=== PATIENT | female | born 1945 | race Hispanic/Latino ===

== ENCOUNTER → 2018-03-08 | Outpatient (CLI) | payer OTHER, MEDICARE ==
[2018-03-08 14:03] LABS: CREATININE 0.9 mg/dL (0.5-1.5)
== END ==
LOC: LAB 12:35
PROVIDERS: ATTEND Internal Medicine
DX: R22.2 Localized swelling, mass and lump, trunk (principal); Z85.3 Personal history of malignant neoplasm of breast
CPT/HCPCS: 36415; 82565; 84520

== ENCOUNTER → 2018-03-21 | Outpatient (CLI) | payer OTHER, MEDICARE ==
[~2018-03-21] MED LIST: IOPAMIDOL-370 75 ML VIAL IV ONE
[2018-03-21 10:11] LABS: CREATININE 0.9 mg/dL (0.5-1.5)
== END | disposition home or self-care (01) ==
LOC: RAH 09:35
PROVIDERS: ATTEND Internal Medicine
DX: R22.2 Localized swelling, mass and lump, trunk (principal); Z85.3 Personal history of malignant neoplasm of breast
CPT/HCPCS: 36415; 71260; 82565; 84520; Q9967

== ENCOUNTER → 2018-04-01 | Outpatient (CLI) | payer OTHER, MEDICARE | END | disposition home or self-care (01) | LOC: RAH 11:55 | PROVIDERS: ATTEND Internal Medicine | DX: E04.9 Nontoxic goiter, unspecified (principal); N93.9 Abnormal uterine and vaginal bleeding, unspecified; Z90.710 Acquired absence of both cervix and uterus | CPT/HCPCS: 76536; 76856 ==

== ENCOUNTER → 2018-04-16 | Outpatient (CLI) | payer OTHER, MEDICARE | END | disposition home or self-care (01) | LOC: RAH 08:24 | PROVIDERS: ATTEND Internal Medicine | DX: R92.8 Other abnormal and inconclusive findings on diagnostic imaging of breast (principal); R94.5 Abnormal results of liver function studies; Z85.3 Personal history of malignant neoplasm of breast | CPT/HCPCS: 77065 ==

== ENCOUNTER → 2018-04-18 | Outpatient (CLI) | payer OTHER, MEDICARE ==
[~2018-04-18] MED LIST changes: -IOPAMIDOL-370 75 ML VIAL IV ONE; +LIDOCAINE 1%-EPI 1:100,000 20 ML VIAL IJ ONE; +LIDOCAINE HCL 1% 20 ML VIAL ONE; +SODIUM BICARB 50MEQ 50ML VIAL ONE
[2018-04-18 09:43] LABS: INR 1.02 (0.85-1.15); PARTIAL THROMBOPLASTIN TIME 26.8 SEC (26.3-35.5); PROTHROMBIN TIME 10.7 SEC (9.6-11.6)
== END | disposition home or self-care (01) ==
LOC: RAH 08:59
PROVIDERS: ATTEND Internal Medicine
DX: E04.9 Nontoxic goiter, unspecified (principal)
CPT/HCPCS: 36415; 60100; 85610; 85730; 88161; 88173; 88305 ×2; J3490 ×2

== ENCOUNTER → 2018-11-04 | Outpatient (CLI) | payer OTHER, MEDICARE | END | disposition home or self-care (01) | LOC: RAH 12:20 | PROVIDERS: ATTEND Internal Medicine | DX: R07.89 Other chest pain (principal) | CPT/HCPCS: 71100 ==

== ENCOUNTER → 2019-01-20 | Outpatient (CLI) | payer OTHER, MEDICARE | END | disposition home or self-care (01) | LOC: RAH 08:04 | PROVIDERS: ATTEND Internal Medicine | DX: M48.56XA Collapsed vertebra, not elsewhere classified, lumbar region, initial encounter for fracture (principal); T14.8XXA Other injury of unspecified body region, initial encounter; Y93.89 Activity, other specified; Y92.89 Other specified places as the place of occurrence of the external cause; Y99.8 Other external cause status | CPT/HCPCS: 72146 ==

== ENCOUNTER → 2019-04-24 | Outpatient (CLI) | payer OTHER, MEDICARE | END | disposition home or self-care (01) | LOC: RAH 14:33 | PROVIDERS: ATTEND Internal Medicine | DX: R92.8 Other abnormal and inconclusive findings on diagnostic imaging of breast (principal); Z85.3 Personal history of malignant neoplasm of breast | CPT/HCPCS: 77065 ==

== ENCOUNTER → 2019-04-25 | Outpatient (CLI) | payer OTHER, MEDICARE | END | disposition home or self-care (01) | LOC: OIH 13:42 | PROVIDERS: ATTEND Neurological Surgery | DX: S32.018A Other fracture of first lumbar vertebra, initial encounter for closed fracture (principal); M85.88 Other specified disorders of bone density and structure, other site; X58.XXXA Exposure to other specified factors, initial encounter; Y93.89 Activity, other specified; Y92.89 Other specified places as the place of occurrence of the external cause; Y99.8 Other external cause status | CPT/HCPCS: 72070; 72100 ==

== ENCOUNTER → 2020-07-14 | Outpatient (CLI) | payer OTHER, MEDICARE | END | disposition home or self-care (01) | LOC: RAH 14:38 | PROVIDERS: ATTEND Internal Medicine | DX: R92.2 Inconclusive mammogram (principal); Z85.3 Personal history of malignant neoplasm of breast | CPT/HCPCS: 77065 ==

== ENCOUNTER → 2021-07-04 | Outpatient (CLI) | payer OTHER, MEDICARE | END | disposition home or self-care (01) | LOC: RAH 10:32 | PROVIDERS: ATTEND Internal Medicine | DX: E04.1 Nontoxic single thyroid nodule (principal); C73 Malignant neoplasm of thyroid gland; Z85.850 Personal history of malignant neoplasm of thyroid | CPT/HCPCS: 76536 ==

== ENCOUNTER → 2021-07-15 | Outpatient (CLI) | payer OTHER, MEDICARE | END | disposition home or self-care (01) | LOC: RAH 09:41 | PROVIDERS: ATTEND Internal Medicine | DX: C50.912 Malignant neoplasm of unspecified site of left female breast (principal); Z85.3 Personal history of malignant neoplasm of breast | CPT/HCPCS: 77065 ==

== ENCOUNTER → 2022-07-17 | Outpatient (CLI) | payer MEDICARE | END | disposition home or self-care (01) | LOC: RAH 06-26 13:21 | PROVIDERS: ATTEND Internal Medicine | DX: Z12.31 Encounter for screening mammogram for malignant neoplasm of breast (principal); R92.8 Other abnormal and inconclusive findings on diagnostic imaging of breast | CPT/HCPCS: 77065 ==

== ENCOUNTER → 2023-02-12 | Outpatient (CLI) | payer MEDICARE | END | disposition home or self-care (01) | LOC: SHCH 12:43 | PROVIDERS: ATTEND Internal Medicine | DX: I10 Essential (primary) hypertension (principal); E11.9 Type 2 diabetes mellitus without complications | CPT/HCPCS: 93306 ==

== ENCOUNTER → 2023-07-16 | Outpatient (CLI) | payer MEDICARE | END | disposition home or self-care (01) | LOC: RAH 09:52 | PROVIDERS: ATTEND Internal Medicine | DX: Z85.3 Personal history of malignant neoplasm of breast (principal) | CPT/HCPCS: 77065 ==

== ENCOUNTER 2023-10-01 07:27 | Observation (INO) | payer MEDICARE ==
[2023-09-27 12:19] LABS: BASOPHILS # (AUTO) 0.04 K/uL (0.00-0.20); BASOPHILS % (AUTO) 0.5 % (0.0-5.0); EOSINOPHILS # (AUTO) 0.13 K/uL (0.00-0.70); EOSINOPHILS % (AUTO) 1.5 % (0.0-8.0); HEMATOCRIT 38.7 % (36-48); IMMATURE GRANULOCYTE ABSOLUTE 0.07 K/uL (0-1); LYMPHOCYTES # (AUTO) 2.7 K/uL (1.0-4.8); LYMPHOCYTES % (AUTO) 31.4 % (21.0-51.0); MEAN CORPUSCULAR HEMOGLOBIN 30.2 pg (27.0-33.0); MEAN CORPUSCULAR HGB CONC 33.3 g/dL (32.0-36.0); MEAN CORPUSCULAR VOLUME 90.6 fL (79-99); MONOCYTES # (AUTO) 0.7 K/uL (0.1-1.0); NEUTROPHILS # (AUTO) 4.9 K/uL (1.8-7.7); NEUTROPHILS % (AUTO) 57.8 % (40.0-77.0); PLATELET COUNT (AUTO) 287 K/uL (130-400); RED BLOOD CELL COUNT(AUTO) 4.27 MIL/uL (4.00-5.50); RED CELL DISTRIBUTION WIDTH 13.6 % (11.0-15.5); WHITE BLOOD COUNT (AUTO) 8.5 K/uL (4.8-10.8)
[2023-09-27 12:32] LABS: INR 0.94 (0.85-1.15); PROTHROMBIN TIME 10.9 SEC (9.6-11.6)
[2023-09-27 12:33] LABS: PARTIAL THROMBOPLASTIN TIME 30.5 SEC (26.3-35.5)
[2023-09-27 12:40] LABS: B-TYPE NATRIURETIC PEPTIDE 56 pg/mL (0-100); CREATININE 1.1 mg/dL (0.5-1.5); POTASSIUM 4.7 mmol/L (3.5-5.1)
[2023-09-27 12:48] VITALS: BP 213/91; PULSE 64; RESP 16
[2023-10-01] VITALS (12 sets, daily range): BP systolic 97–184; BP diastolic 45–67; PULSE 68–81; RESP 14–20; O2SAT 97–98
[~2023-10-01] VITALS: Ht 152.4 cm; Wt 58.5 kg
[~2023-10-01 07:27] MED LIST changes: +ALCA5DRO OU; +ATOR20TA65 PO; +HYDR25TA PO; +LEVO75CA5 PO; -LIDOCAINE 1%-EPI 1:100,000 20 ML VIAL IJ ONE; -LIDOCAINE HCL 1% 20 ML VIAL ONE; +LISI40TA9 PO; +METF-444 PO; +SITA100T12 PO; -SODIUM BICARB 50MEQ 50ML VIAL ONE; +TRAV2.5D OU
[2023-10-01] MEDS ORDERED: VERAPAMIL HCL 2.5 MG/ML VIAL ONE (10:01)
[2023-10-01] MEDS ORDERED: HEPARIN 10,000 UNIT/10ML (1,000 UNIT/ML) VIAL ONE (10:01)
[2023-10-01] MEDS ORDERED: IOHEXOL 350 MG/ML 100ML INFUS..BTL IV ONE (10:01)
[2023-10-01] MEDS ORDERED: LIDOCAINE HCL-MPF 2% 5ML VIAL ONE ×2 (10:01→10:37)
[2023-10-01] MEDS ORDERED: FENTANYL CITRATE PF 50 MCG/1 ML 2ML VIAL ONE ×2 (10:01→11:47)
[2023-10-01] MEDS ORDERED: MIDAZOLAM HCL 1 MG/ML 2ML VIAL ONE (10:01)
[2023-10-01] MEDS ORDERED: HYDRALAZINE 20MG/ML VIAL ONE (10:42)
[2023-10-01] MEDS ORDERED: EPTIFIBATIDE 2 MG/ML 10 ML VIAL IVP ONE (11:31)
[2023-10-01] MEDS ORDERED: EPTIFIBATIDE 75MG/100ML BOTTLE 100 ML IV ONE (11:48)
[2023-10-01] MEDS ORDERED: ASPIRIN 325MG EC TAB PO ONE (12:09)
[2023-10-01] MEDS ORDERED: CLOPIDOGREL 300MG TAB ONE (12:09)
[2023-10-01] MEDS ORDERED: ACETAMINOPHEN WITH CODEINE 1 TAB TAB PO PRN (12:30)
[2023-10-01] MEDS ORDERED: ONDANSETRON 4MG INJ IVP SCH (12:30)
[2023-10-01] MEDS ORDERED: POTASSIUM CHLORIDE 10% ELIXIR 20 MEQ/15 ML UDCUP PO PRN (12:30)
[2023-10-01] MEDS ORDERED: ONDANSETRON 4MG INJ IVP PRN (12:30)
[2023-10-01] MEDS ORDERED: NITROGLYCERIN 50MG/D5W 250ML 1 BOT IV PRN (12:30)
[2023-10-01] MEDS ORDERED: HYDRALAZINE 20MG/ML VIAL IV PRN (12:30)
[2023-10-01] MEDS ORDERED: EPTIFIBATIDE 75MG/100ML BOTTLE 100 ML IV SCH (12:30)
[2023-10-01] MEDS: INSULIN HUMULIN R 100 UNIT/ML 3ML SQ SCH ×2 (16:21→20:18)
[2023-10-02 00:09] VITALS: BP 115/49; PULSE 62; RESP 18
[2023-10-02 03:53] LABS: MEAN CORPUSCULAR HEMOGLOBIN 30.7 pg (27.0-33.0); MEAN CORPUSCULAR HGB CONC 33.7 g/dL (32.0-36.0); MEAN CORPUSCULAR VOLUME 91.1 fL (79-99); RED BLOOD CELL COUNT(AUTO) 3.84 MIL/uL (4.00-5.50); WHITE BLOOD COUNT (AUTO) 10.5 K/uL (4.8-10.8)
[2023-10-02 04:04] LABS: CREATININE 1.3 mg/dL (0.5-1.5); POTASSIUM 4.5 mmol/L (3.5-5.1)
[2023-10-02 04:09] VITALS: BP 132/64; PULSE 75; RESP 18
[2023-10-02] MEDS: INSULIN HUMULIN R 100 UNIT/ML 3ML SQ SCH (06:00)
[2023-10-02] MEDS ORDERED: LEVOTHYROXINE 75 MCG TABLET ONE (06:14)
[2023-10-02] MEDS ORDERED: LEVOTHYROXINE 75 MCG TABLET PO SCH (06:30)
[2023-10-02] MEDS ORDERED: CLOP75TA32 PO (07:45)
[2023-10-02] MEDS ORDERED: AEC81 PO (07:45)
[2023-10-02 07:47] VITALS: BP 149/68; PULSE 64; RESP 20
[2023-10-02 08:00] VITALS: O2SAT 97
[2023-10-02] MEDS ORDERED: CLOPIDOGREL 75MG TAB PO SCH (09:00)
[2023-10-02] MEDS ORDERED: ASPIRIN 81MG CHEW TAB PO SCH (09:00)
== END 2023-10-02 08:50 | disposition home or self-care (01) ==
LOC: DAH 07:27 → DAHIP 07:28 → 2DH 14:45
PROVIDERS: ADMIT Internal Medicine; ATTEND Internal Medicine
DX: I47.20 Ventricular tachycardia, unspecified (principal); I25.10 Atherosclerotic heart disease of native coronary artery without angina pectoris; I10 Essential (primary) hypertension; E03.9 Hypothyroidism, unspecified; E11.9 Type 2 diabetes mellitus without complications; E78.5 Hyperlipidemia, unspecified; M81.0 Age-related osteoporosis without current pathological fracture; Z85.3 Personal history of malignant neoplasm of breast; Z79.899 Other long term (current) drug therapy; Z88.6 Allergy status to analgesic agent
CPT/HCPCS: 80048 ×2; 83880; 85025; 85610; 85730; 36415 ×2; 71045; 93005 ×3; 93458; 82948 ×5; 85027; C1887 ×2; C1894 ×2; C1725 ×2; C1874 ×2; C1760; C1769; Q9965 ×2; G0378 ×20; J3010 ×2; J0360; J1644 ×3; J2250; J1327 ×2; J3490 ×2; Q9967; A4215; A4223 ×3; A4222; A4221; A4663; A4216; A4606; C9600; C9601; 99156; 99157

== ENCOUNTER 2024-10-02 13:37 | Inpatient (IN) | payer MEDICARE ==
[~2024-10-02] VITALS: Ht 157.5 cm; Wt 57.8 kg
[~2024-10-02 13:37] MED LIST changes: +AEC81 PO; +CLOP75TA32 PO
--- NOTE | 2024-10-02 13:57 | ERN ---
ED Note History of Present Illness Stated Complaint: SENT BY PHYSICIANSHIRA Time Seen by MD: 13:39 Dictation: PATIENT IS A 78-YEAR-OLD FEMALE COMING IN TODAY WITH HER DAUGHTER FROM LOCAL PRIMARY CARE DOCTOR'S OFFICE WITH COMPLAINTS OF SUICIDAL IDEATION AND WANTING TO . PER THE DAUGHTER, PATIENT LOST HER FOR YEARS AGO AND HAS BEEN DEPRESSED SINCE HIGHER OF HIS JUST RECENTLY TALKED ABOUT WANTING TO . SHE ALSO HAD BEEN SEEN AT LOCAL EMERGENCY ROOMS IN THE LAST TWO WEEKS FOR BLOOD PRESSURE HOWEVER SHE HAS BENIGN CHEST PAIN BACK PAIN SOB NO NAUSEA NO VOMITING. NO PLAN PATIENT STATES SHE HAS NOT BEEN TO SEE HER PRIMARY CARE DOCTOR Allergies: Coded Allergies: acetaminophen (Unverified Adverse Reaction, Mild, SWELLING, 04/18/18) patient states, "i have eye swelling with tylenol 500mg by mouth, but i can take the tylenol 325mg by mouth and no problems." Home Meds Active Scripts Clopidogrel Bisulfate (Clopidogrel) 75 Mg Tablet, 75 MG PO DAILY, #90 TAB 1 Refill Prov:VANGIE LLOYD DO 10/02/23 Aspirin (ASPIRIN 81 MG ECTAB) 81 Mg Ectab, 81 MG PO DAILY, #90 TAB.EC 2 Refills Prov:VANGIE LLOYD DO 10/02/23 Reported Medications Alcaftadine (Lastacaft Once Daily Relief) 0.25 % Drops, 1 DROP OU AM, DROP 09/27/23 Travoprost (Travatan-Z 0.004%) 0.004 % Opsol, 1 DROP OU HS, DROP 09/27/23 Sitagliptin Phosphate (Januvia) 100 Mg Tablet, 100 MG PO AM, TAB 09/27/23 Atorvastatin Calcium (Atorvastatin Calcium) 20 Mg Tablet, 20 MG PO HS, TAB 09/27/23 Metformin HCl (Metformin HCl) 500 Mg Tablet, 500 MG PO BID, TAB 09/27/23 Lisinopril (Lisinopril) 40 Mg Tablet, 40 MG PO AM, TAB 09/27/23 Levothyroxine Sodium (Levothyroxine) 75 Mcg Capsule, 75 MCG PO AM, CAP 09/27/23 Hydrochlorothiazide (Hydrochlorothiazide) 25 Mg Tablet, 25 MG PO AM, TAB 09/27/23 Past Medical History History: Not Applicable RN Note Reviewed/Agreed w/PFSH: Yes Review of System Dictation CONSTITUTIONAL: NEGATIVE EXCEPT FOR HPI WEAKNESS HEAD/FACE: NEGATIVE EXCEPT FOR HPI EENT: NEGATIVE EXCEPT FOR HPI RESPIRATORY: NEGATIVE EXCEPT FOR HPI GASTROINTESTINAL/ABDOMINAL: NEGATIVE EXCEPT FOR HPI GENITOURINARY: NEGATIVE EXCEPT FOR HPI MUSCULOSKELETAL: NEGATIVE EXCEPT FOR HPI INTEGUMENTARY: NEGATIVE EXCEPT FOR HPI NEUROLOGICAL/PSYCH: NEGATIVE EXCEPT FOR HPI ANXIETY/INSOMNIA/SUICIDAL THOUGHTS HEMATOLOGIC/LYMPHATIC: NEGATIVE EXCEPT FOR HPI ALL SYSTEMS NEGATIVE, EXCEPT NOTED ABOVE. 13 POINT REVIEW OF SYSTEMS ASSESSED AND ALL NEGATIVE EXCEPT FOR ABOVE. Initial Vital Sign VS Vital Signs Date Time Temp Pulse Resp B/P (MAP) Pulse Ox O2 Delivery O2 Flow Rate FiO2 10/02/24 13:58 98.2 82 20 164/65 99 Room Air 10/02/24 14:42 0 21 Physical Exam Dictation VITAL SIGNS REVIEWED GENERAL APPEARANCE: ALERT, ORIENTED X 3, NO ACUTE DISTRESS, WELL DEVELOPED, NOURISHED. HEAD AND FACE: NON-TRAUMATIC. EYES: PERRL, PINK CONJUNCTIVAS, EYELID NO TRAUMA, ANTERIOR CHAMBER WITH ARCUS SENILIS. EARS: PINNAS INTACT AND NO SIGNS OF TRAUMA OR ERYTHEMA EAR CANALS CLEAR AND NO DISCHARGE TM NO ERYTHEMA NOSE: NO DISCHARGE, NO BLEEDING. OROPHARYNX: MOUTH NORMAL, TONGUE PINK, PHARYNX CLEAR,NO ERYTHEMA, TONSILS NO EXUDATES, NO ABSCESSES NOTED, MUCOUS MEMBRANE MOIST NECK: SUPPLE, NON-TENDER, NO THYROMEGALY, NO MASSES, NO JVD, NO BRUITS BREAST:DEFERRED CHEST:NO TENDERNESS, NO CREPITUS, NO PARADOXICAL MOVEMENT, NO RETRACTIONS LUNGS:CLEAR, WELL-VENTILATED, SYMMETRIC, NO RALES, NO WHEEZING, NO RHONCHI, NO STRIDOR, GOOD BREATH SOUNDS BILATERALLY HEART: REGULAR RATE, REGULAR RHYTHM, NO MURMUR, NO GALLOPS VASCULAR: NO PERIPHERAL EDEMA, ABDOMEN: SOFT, POSITIVE BOWEL SOUNDS, NONDISTENDED, NO GUARDING, NONTENDER, NO REBOUND, NO MASSES NO HEPATOMEGALY, NO SPLENOMEGALY, NO HAY'S SIGN, NO HERNIAS. RECTAL: DEFERRED GENITAL: DEFERRED NEUROLOGICAL: NORMAL SPEECH, MOTOR FUNCTION INTACT, SENSORY FUNCTION INTACT S PANISH-SPEAKING, STATES [facility] HER MUSCULOSKELETAL: NECK NONTENDER, FULL RANGE OF MOTION, BACK NONTENDER, FULL RANGE OF MOTION, EXTREMITIES: NONTENDER, FULL RANGE OF MOTION SKIN: COLOR PINK, DRY, NO TURGOR, NO RASH, NO LACERATIONS, NO ABRASIONS, NO CONTUSIONS. LYMPHATIC: DEFERRED Results (Laboratory/Radiology) Laboratory/Radiology Laboratory Tests Test 10/02/24 14:14 10/02/24 14:21 Urine Color LIGHT-YELLOW (YELLOW) Urine Appearance CLOUDY (CLEAR) H Urine pH 5.0 (5.0-8.0) Urine Specific Driscoll 1.014 (1.001-1.031) Urine Protein 10 mg/dL (NEGATIVE) H Urine Glucose (UA) 200 mg/dL (NEGATIVE) H Urine Ketones NEGATIVE mg/dL (NEGATIVE) Urine Occult Blood SMALL (NEGATIVE) H Urine Nitrate NEGATIVE (NEGATIVE) Urine Bilirubin NEGATIVE mg/dL (NEGATIVE) Urine Urobilinogen 0.2 mg/dL (0.2-1.0) Urine Leukocyte Esterase 250 Kole/uL (NEGATIVE) H Urine RBC 2-5 /HPF (0-1) H Urine WBC 6-10 /HPF (0-1) H Urine Squamous Epithelial Cells RARE /HPF (0-2) Urine Bacteria RARE /HPF (None Seen) Urine Hyaline Casts 2-5 /LPF (0-1 /LPF) H Urine Opiates Screen NEGATIVE (NEGATIVE) Urine Barbiturates Screen NEGATIVE (NEGATIVE) Urine Phencyclidine Screen NEGATIVE (NEGATIVE) Urine Amphetamines Screen NEGATIVE (NEGATIVE) Urine Benzodiazepines Screen NEGATIVE (NEGATIVE) Urine Cocaine Screen NEGATIVE (NEGATIVE) Urine Marijuana (THC) Screen NEGATIVE (NEGATIVE) White Blood Count 11.9 K/uL (4.8-10.8) H Red Blood Count 3.98 MIL/uL (4.00-5.50) L Hemoglobin 12.0 g/dL (12.0-16.0) Hematocrit 35.6 % (36-48) L Mean Corpuscular Volume 89.4 fL (79-99) Mean Corpuscular Hemoglobin 30.2 pg (27.0-33.0) Mean Corpuscular Hemoglobin Concent 33.7 g/dL (32.0-36.0) Red Cell Distribution Width 12.7 % (11.0-15.5) Platelet Count 338 K/uL (130-400) Mean Platelet Volume 10.0 fL (7.5-10.5) Immature Granulocyte % (Auto) 0.7 % (0-1) Neutrophils (%) (Auto) 82.9 % (40.0-77.0) H Lymphocytes (%) (Auto) 9.7 % (21.0-51.0) L Monocytes (%) (Auto) 6.2 % (3.0-13.0) Eosinophils (%) (Auto) 0.2 % (0.0-8.0) Basophils (%) (Auto) 0.3 % (0.0-5.0) Neutrophils # (Auto) 9.9 K/uL (1.8-7.7) H Lymphocytes # (Auto) 1.2 K/uL (1.0-4.8) Monocytes # (Auto) 0.7 K/uL (0.1-1.0) Eosinophils # (Auto) 0.02 K/uL (0.00-0.70) Basophils # (Auto) 0.04 K/uL (0.00-0.20) Absolute Immature Granulocyte (auto 0.08 K/uL (0-1) Nucleated Red Blood Cells 0.0 % (0.0-0.19) White Cell Morphology Comment See comments Sodium Level 125 mmol/L (136-145) L Potassium Level 4.2 mmol/L (3.5-5.1) Chloride Level 87 mmol/L (101-111) *L Carbon Dioxide Level 26 mmol/L (21-32) Blood Urea Nitrogen 12 mg/dL (7-18) Creatinine 1.3 mg/dL (0.5-1.0) H Glomerular Filtration Rate Calc 42 mL/min (>90) Random Glucose 259 mg/dL (70-105) H Total Calcium 8.8 mg/dL (8.5-10.1) Troponin I High Sensitivity 23 ng/L (4-50) Salicylates Level < 2.8 mg/dL (2.8-20.0) L Acetaminophen Level < 1 mcg/mL (10-30) L Serum Alcohol < 3 mg/dL (0-10) Labs Reviewed?: Yes EKG Comment: EKG SINUS RHYTHM/HEART RATE 81/LEFT VENTRICULAR HYPERTROPHY, NO ED Course ED Course Orders Procedure Category Date Status Time Drug Screen Urine LAB 10/02/24 Complete 13:50 12 Lead Ekg Tracing- EKG 10/02/24 Logged Technical 13:50 Troponin I High LAB 10/02/24 Complete Sensitivity 13:50 Cbc With Differential LAB 10/02/24 Complete 13:50 Alcohol, Blood LAB 10/02/24 Complete 13:50 Salicylate LAB 10/02/24 Complete 13:50 Acetaminophen LAB 10/02/24 Complete 13:50 Urinalysis Profile LAB 10/02/24 Complete 13:50 Basic Metabolic Panel LAB 10/02/24 Complete 13:50 Chest 1vw RAD 10/02/24 Resulted 13:50 Culture Urine ANTONIA 10/02/24 In Process 14:35 Clonidine Hcl 0.1 Mg PHA 10/02/24 In Process Tablet (Catapres 0. 21:00 Clonidine Hcl 0.1 Mg PHA 10/02/24 Complete Tablet (Catapres 0. 14:44 0.9%Nacl 1000ml (Ns PHA 10/02/24 Complete 1000ml) 16:00 Ceftriaxone 1g Vial PHA 10/02/24 Complete (Rocephine 1g Inj) 16:00 Pharmacy PHA 10/02/24 Complete Communication 17:00 Current Medications Medications (Trade) Dose Ordered Sig/Juan Route PRN Reason Start Time Stop Time Status Last Admin Dose Admin Ceftriaxone Sodium (ROCEphine 1G INJ) 1 gm ONCE ONCE IVPB 10/02/24 16:00 10/02/24 17:27 DC Clonidine HCl (CATApres 0.1 mg TAB) 0.1 mg BID PO 10/02/24 21:00 11/01/24 20:59 10/02/24 15:02 Clonidine HCl (CATApres 0.1 mg TAB) 0.1 mg STK-MED ONCE .ROUTE 10/02/24 14:44 10/02/24 14:45 DC Pharmacy Profile Note (Pharmacy Communication) 1 each Q5MIN MISC 10/02/24 17:00 10/02/24 17:27 DC 10/02/24 17:10 Sodium Chloride 1,000 ml @ 0 mls/hr ONCE ONCE IV 10/02/24 16:00 10/02/24 16:01 DC 10/02/24 16:13 Vital Signs Date Time Temp Pulse Resp B/P (MAP) Pulse Ox O2 Delivery O2 Flow Rate FiO2 10/02/24 16:15 98.4 77 16 154/63 99 Room Air* 0 21 10/02/24 15:16 98.4 77 16 145/68 99 Room Air* 0 21 10/02/24 15:02 184/77 10/02/24 15:01 184/77 10/02/24 14:42 98.4 83 16 184/77 98 Room Air* 0 21 10/02/24 13:58 98.2 82 20 164/65 99 Room Air 1555, PATIENT WILL BE ADMITTED TO THE HOSPITAL FOR HYPERTENSION/URINARY TRACT INFECTION HYPONATREMIA AND HYPOCHLOREMIA AND ACUTE KIDNEY INJURY. ADDITIONALLY, BLOOD PRESSURE 145/68 AFTER CLONIDINE. 1828 BLOOD PRESSURE 154/63, PATIENT IS MEDICALLY CLEARED FROM PSYCH AND DOES NOT MEET CRITERIA FOR ADMISSION AND NOT DEEM SUICIDAL. SHE WILL BE ADMITTED TO THE HOSPITAL FOR HYPONATREMIA HYPOCHLOREMIA HYPERTENSION UNCONTROLLED DIABETES AND ACUTE KIDNEY INJURY WITH UTI. SPOKE WITH [facility] HOSPITALIST AND SHE AGREED TO ADMIT AFTER REVIEWING LABS AND SHE IS AWARE THE [facility] HAS ALREADY SCREEN THE PATIENT. HEART Score Response (Comments) Value History: Low suspicion (0) 0 Age: > 65yrs (+2) 2 Risk Factors: 1-2 risk factors (+1) 1 Initial Troponin: Normal limit (0) 0 Total 3 Medical Decision Making MDM MDM: DIFFERENTIAL DIAGNOSIS: ACS/AMI/DEPRESSION/SUICIDAL/ELECTROLYTE IMBALANCE/DEHYDRATION/UTI/INSOMNIA RATIONALE: TESTS CONSIDERED AND ORDERED SECONDARY TO SHARED DECISION MAKING I NCLUDE: LABS, ECG AND RADIOLOGY PREVIOUS OUTSIDE RECORDS REVIEWED: OLD ER VISITS. REVIEWED RISK OF COMPLICATION AND/OR MORBIDITY OR MORTALITY OF PATIENT MANAGEMENT: NONE MEDICATIONS-PER MEDICATION RECONCILIATION NEED FOR HOSPITALIZATION: PATIENT DOES MEET CRITERIA FOR HOSPITALIZATION. PATIENT WILL NEED CORRECTION OF HER ELECTROLYTE IMBALANCE AND DEHYDRATION AND THEN SUICIDAL EVALUATION BY [facility] NEED FOR EMERGENCY MAJOR/MINOR SURGERY: NO THERE ARE NO SOCIAL CONCERNS WITH THIS PATIENT. PRESCRIPTION DRUG MANAGEMENT PRESCRIPTIONS WILL INCLUDE SYMPTOMATIC CARE PATIENT'S PRIOR EXTERNAL MEDICAL RECORDS FROM OTHER ER VISITS WERE REVIEWED BY ME INDICATED. PRIOR TESTING AND RESULTS FROM PREVIOUS VISITS WERE REVIEWED. PRIOR TESTS WERE TAKEN INTO ACCOUNT WITH MEDICAL DECISION MAKING AND RESOURCE UTILIZATION, INDEPENDENT HISTORIAN/HISTORIANS WERE USED TO OBTAIN COMPLETE MEDICAL HISTORY. I INDEPENDENTLY INTERPRETED THE TEST THAT WERE PERFORMED, RESULTS WERE REVIEWED BY ME AND CONSIDERED FINDINGS ON RADIOLOGY IF ORDERED. MEDICAL MANAGEMENT AND EXAMINATION INTERPRETATION DISCUSSIONS WERE HAD BY ME WITH OTHER QUALIFIED HEALTHCARE PROFESSIONALS INDICATED FOR THE PATIENT'S CARE. DX & DISP Disposition: Inpatient Decision to Admit Time: 15:55 Departure Impression: Primary Impression: Depression Additional Impressions: Uncontrolled hypertension, Hyponatremia, Hypochloremia, Acute kidney injury, Acute urinary tract infection Condition: Stable Referrals: MIGEL CASTILLO MD (PCP) Time of Disposition: 15:55 I have reviewed the case, and I agree with, Diagnosis and Plan JESSICA RADER NP Oct 02, 2024 13:57
[2024-10-02 14:34] LABS: APPEARANCE,URINE CLOUDY (CLEAR); BILIRUBIN,URINE NEGATIVE (NEGATIVE); COLOR,URINE LIGHT-YELLOW (YELLOW); GLUCOSE, URINE (UA) 200 mg/dL (NEGATIVE); KETONES,URINE NEGATIVE (NEGATIVE); LEUKOCYTE ESTERASE ,URINE 250 Leu/uL (NEGATIVE); NITRATE,URINE NEGATIVE (NEGATIVE); OCCULT BLOOD,URINE SMALL (NEGATIVE); PROTEIN,URINE 10 mg/dL (NEGATIVE); UROBILINOGEN,URINE 0.2 mg/dL (0.2-1.0)
[2024-10-02 14:35] LABS: ADD UA MICROSCOPIC YES
[2024-10-02 14:42] LABS: BACTERIA,URINE RARE /HPF (None Seen); MUCUS,URINE RARE LPF (None Seen); SQUAMOUS EPITHELIAL CELL,UR RARE /HPF (0-2)
[2024-10-02 14:47] LABS: ALCOHOL, BLOOD < 3 mg/dL (0-10); CARBON DIOXIDE 26 mmol/L (21-32); CREATININE 1.3 mg/dL (0.5-1.0); GLOMERULAR FILTR. RATE CALC 42 mL/min (>90); GLUCOSE,RANDOM 259 mg/dL (70-105); POTASSIUM 4.2 mmol/L (3.5-5.1); SODIUM SERUM 125 mmol/L (136-145); UREA NITROGEN, BLOOD 12 mg/dL (7-18)
[2024-10-02 14:48] LABS: ACETAMINOPHEN < 1 mcg/mL (10-30); SALICYLATE < 2.8 mg/dL (2.8-20.0)
[2024-10-02 14:49] LABS: CHLORIDE 87 mmol/L (101-111)
[2024-10-02 14:57] LABS: BASOPHILS # (AUTO) 0.04 K/uL (0.00-0.20); BASOPHILS % (AUTO) 0.3 % (0.0-5.0); EOSINOPHILS # (AUTO) 0.02 K/uL (0.00-0.70); EOSINOPHILS % (AUTO) 0.2 % (0.0-8.0); HEMATOCRIT 35.6 % (36-48); IMMATURE GRANULOCYTE ABSOLUTE 0.08 K/uL (0-1); LYMPHOCYTES # (AUTO) 1.2 K/uL (1.0-4.8); LYMPHOCYTES % (AUTO) 9.7 % (21.0-51.0); MEAN CORPUSCULAR HEMOGLOBIN 30.2 pg (27.0-33.0); MEAN CORPUSCULAR HGB CONC 33.7 g/dL (32.0-36.0); MEAN CORPUSCULAR VOLUME 89.4 fL (79-99); MONOCYTES # (AUTO) 0.7 K/uL (0.1-1.0); MONOCYTES % (AUTO) 6.2 % (3.0-13.0); NEUTROPHILS # (AUTO) 9.9 K/uL (1.8-7.7); NEUTROPHILS % (AUTO) 82.9 % (40.0-77.0); PLATELET COUNT (AUTO) 338 K/uL (130-400); RED BLOOD CELL COUNT(AUTO) 3.98 MIL/uL (4.00-5.50); RED CELL DISTRIBUTION WIDTH 12.7 % (11.0-15.5); WHITE BLOOD COUNT (AUTO) 11.9 K/uL (4.8-10.8)
[2024-10-02] MEDS: cloNIDine HCL 0.1 MG TABLET ONE (15:01)
[2024-10-02] MEDS: cloNIDine HCL 0.1 MG TABLET PO SCH (15:02)
[2024-10-02 15:22] LABS: AMPHET/METH SCREEN,URINE NEGATIVE (NEGATIVE); BARBITURATE SCREEN, URINE NEGATIVE (NEGATIVE); BENZODIAZEPINES SCREEN,URINE NEGATIVE (NEGATIVE); CANNABINOID SCREEN,URINE NEGATIVE (NEGATIVE); COCAINE SCREEN,URINE NEGATIVE (NEGATIVE); OPIATE SCREEN,URINE NEGATIVE (NEGATIVE); PHENCYCLIDINE SCREEN,URINE NEGATIVE (NEGATIVE)
--- NOTE | 2024-10-02 15:25 | NUR ---
[facility] [place] NOTIFIED FOR EVALUATION
--- NOTE | 2024-10-02 15:45 | HMCIMG ---
CHEST 1VW REASON: CHEST PAIN COMPARISON: 09/27/2023 FINDINGS: Single view of the chest was obtained. Lungs are clear. Heart size is normal. There is no pulmonary vascular congestion. Mediastinum and bony thorax appear unremarkable. IMPRESSION: 1. Normal single view chest x-ray.
[2024-10-02] MEDS: 0.9%NACL 1000ML 1,000 ML IV ONE (16:13)
[2024-10-02] MEDS: PHARMACY COMMUNICATION MISC SCH (17:01)
--- NOTE | 2024-10-02 17:10 | NUR ---
TROPICAL AT BEDSIDE
[2024-10-02] MEDS: cefTRIAXone 1G VIAL IVPB ONE (18:43)
--- NOTE | 2024-10-02 19:17 | HP ---
[facility] HISTORY AND PHYSICAL Date of Service: Oct 02, 2024 Time of Service: 19:17 PCP:Shamika King HISTORY OF PRESENT ILLNESS: This is a 78-year-old female,Ukrainian speaking past medical history of anemia, spinal fracture, breast cancer, osteoporosis, diabetes, hyperlipidemia, hypertension, hypothyroidism and coronary artery disease with cardiac stent x2 who presents to the ED accompanied with her daughter after coming from a [facility] today was referred to this ED because patient expressed suicidal thoughts and expressed desire to while at the clinic.Reportedly while in the ER patient was cleared by psych and that patient does not meet criteria for admission and not suicidal. Daughter was at bedside during my evaluation who states that her mom lost her for years ago and has been depressed and has been expressing about the desire to .Patient has been recently admitted to [facility] due to hyponatremia and patient left AMA as per daughter .Patient had been to [facility] ER and was told everything was fine and was sent home as per daughter.Today she has a follow up appointment with and she ended up in here . Seen and examined patient in the ER awake,alert and coherent,following commands.Patient states she is drinking 4 bottled water a day.Patient does walking exercise daily but lately unable to do due to generalized body weakness.Patient denies hurting self or hurting other people.Patient has appropriate affect.Patient denies faver,cough,nausea,vomiting,abdominal pain,chest pain,palpitation and shortness of breath. Latest vital signs temperature 98.4 heart rate 62 blood pressure 109/54 saturation 97% on room air. Labs WBC 11.9 with negative left shift of neutrophils 82.9 hemoglobin 12, hematocrit 35 platelet count 338. Sodium 125 chloride 87 creatinine 1.3 GFR 42, glucose 259 troponin 23. Urine toxicology is unremarkable. Urinalysis is consistent with urinary tract infection. EKG result revealed sinus rhythm heart rate 81 left ventricular hypertrophy Chest x-ray result is normal. While in the ER patient was given Tylenol 650 mg p.o., Rocephin 1 g IV, 1 L NS bolus, clonidine 0.1 mg p.o. we will admit patient for further medical management. REVIEW OF SYSTEMS CONSTITUTIONAL: Complain of generalized body weakness Denies fevers, chills, or night sweats. No unintentional weight loss reported. NEUROLOGICAL: Denies headache, amaurosis fugax, motor weakness, sensory deficit, vertigo/spinning sensation, gait abnormalities, or tremors. ENT: No hearing loss, otalgia, otorrhea, rhinitis, rhinorrhea, hoarseness, or sore throat. CARDIOVASCULAR: Denies any exertional angina, dyspnea on exertion, orthopnea, paroxysmal nocturnal dyspnea, palpitations, life-threatening arrhythmias, claudication. PULMONARY: Denies any shortness of breath, cough, phlegm/sputum, hemoptysis, pleuritic chest pain. SLEEP: Denies morning headaches, daytime somnolence or napping. Denies difficulty falling asleep, staying asleep, waking from sleep. Denies knowledge of snoring. GASTROINTESTINAL: Denies any type of dysphagia to either liquids or solids. Denies nausea, vomiting, pyrosis, early satiety, abdominal pain, diarrhea, constipation, or changes in stool consistency or caliber. Denies coffee-ground emesis, hematemesis, hematochezia, or melanotic stools. GENITOURINARY: Denies frequency, urgency, nocturia, hematuria or incontinence (Storage/Irritative symptoms.) Low urinary stream, straining to void, urinary intermittency or hesitancy, splitting of the voiding stream, terminal dribbling. ENDOCRINOLOGIC: Denies polyuria, polydipsia, polyphagia or heat/cold intolerances. HEMATOLOGIC: Denies thrombophilia/previous clots, or coagulopathy/bleeding disorders. ONCOLOGIC: Denies personal history of malignancy. DERMATOLOGIC: Denies rashes or pruritus. PSYCHIATRIC: Denies any suicidal or homicidal ideation. Denies hallucinations. PAST MEDICAL HISTORY: Insomnia, spinal fracture, Breast cancer, osteoporosis, diabetes, hyperlipidemia, hypertension, hypothyroidism and primary artery disease with cardiac stent x2 PAST SURGICAL HISTORY: Right breast mastectomy, hysterectomy, thyroidectomy PAST SOCIAL HISTORY: Patient lives with son. Patient denies alcohol tobacco and recreational drug use FAMILY HISTORY: Diabetes and cancer Coded Allergies: acetaminophen (Unverified Adverse Reaction, Mild, SWELLING, 04/18/18) patient states, "i have eye swelling with tylenol 500mg by mouth, but i can take the tylenol 325mg by mouth and no problems." PHYSICAL EXAM GENERAL APPEARANCE: The patient is awake, alert, and oriented, in no acute cardiopulmonary distress. NEUROLOGICAL: Cranial nerves II-XII grossly intact. Motor is 5/5 in bilateral upper and lower extremities proximal to distal. No sensory deficits. HEENT: Face is symmetric. Pupils are equal and reactive. Extraocular movements are intact. NECK: Supple. No JVD. No thyromegaly. No submental, submandibular, pre- /postauricular, occipital or supraclavicular lymphadenopathy. CHEST: Normal chest expansion. No Telemetry. LUNGS: Absence of any rales, rhonchi or any wheezing. CARDIOVASCULAR: Regular. S1 and S2 normal. No appreciable rubs, murmurs or gallops. ABDOMEN: Soft, nontender, and nondistended. There is no rebound, voluntary guarding, or rigidity. : Deferred. No Vann. EXTREMITIES: Non-edematous and not cyanotic. No clubbing. Good capillary refill. SKIN: No skin breakdown. Vital Sign (Last 24 Hours) 10/02/24 18:31 Temp 98.4 Pulse 77 Resp 16 B/P (MAP) 125/58 Pulse Ox 99 O2 Delivery Room Air* O2 Flow Rate 0 FiO2 21 LABS: Laboratory: Test 10/02/24 14:21 10/02/24 14:14 Range/Units White Blood Count 11.9 H 4.8-10.8 K/uL Red Blood Count 3.98 L 4.00-5.50 MIL/uL Hemoglobin 12.0 12.0-16.0 g/dL Hematocrit 35.6 L 36-48 % Mean Corpuscular Volume 89.4 79-99 fL Mean Corpuscular Hemoglobin 30.2 27.0-33.0 pg Mean Corpuscular Hemoglobin Concent 33.7 32.0-36.0 g/dL Red Cell Distribution Width 12.7 11.0-15.5 % Platelet Count 338 130-400 K/uL Mean Platelet Volume 10.0 7.5-10.5 fL Immature Granulocyte % (Auto) 0.7 0-1 % Neutrophils (%) (Auto) 82.9 H 40.0-77.0 % Lymphocytes (%) (Auto) 9.7 L 21.0-51.0 % Monocytes (%) (Auto) 6.2 3.0-13.0 % Eosinophils (%) (Auto) 0.2 0.0-8.0 % Basophils (%) (Auto) 0.3 0.0-5.0 % Neutrophils # (Auto) 9.9 H 1.8-7.7 K/uL Lymphocytes # (Auto) 1.2 1.0-4.8 K/uL Monocytes # (Auto) 0.7 0.1-1.0 K/uL Eosinophils # (Auto) 0.02 0.00-0.70 K/uL Basophils # (Auto) 0.04 0.00-0.20 K/uL Absolute Immature Granulocyte (auto 0.08 0-1 K/uL Nucleated Red Blood Cells 0.0 0.0-0.19 % White Cell Morphology Comment See comments Sodium Level 125 L 136-145 mmol/L Potassium Level 4.2 3.5-5.1 mmol/L Chloride Level 87 *L 101-111 mmol/L Carbon Dioxide Level 26 21-32 mmol/L Blood Urea Nitrogen 12 7-18 mg/dL Creatinine 1.3 H 0.5-1.0 mg/dL Glomerular Filtration Rate Calc 42 >90 mL/min Random Glucose 259 H 70-105 mg/dL Total Calcium 8.8 8.5-10.1 mg/dL Troponin I High Sensitivity 23 4-50 ng/L Salicylates Level < 2.8 L 2.8-20.0 mg/dL Acetaminophen Level < 1 L 10-30 mcg/mL Serum Alcohol < 3 0-10 mg/dL Urine Color LIGHT-YELLOW YELLOW Urine Appearance CLOUDY H CLEAR Urine pH 5.0 5.0-8.0 Urine Specific Glidden 1.014 1.001-1.031 Urine Protein 10 H NEGATIVE mg/dL Urine Glucose (UA) 200 H NEGATIVE mg/dL Urine Ketones NEGATIVE NEGATIVE mg/dL Urine Occult Blood SMALL H NEGATIVE Urine Nitrate NEGATIVE NEGATIVE Urine Bilirubin NEGATIVE NEGATIVE mg/dL Urine Urobilinogen 0.2 0.2-1.0 mg/dL Urine Leukocyte Esterase 250 H NEGATIVE Kole/uL Urine RBC 2-5 H 0-1 /HPF Urine WBC 6-10 H 0-1 /HPF Urine Squamous Epithelial Cells RARE 0-2 /HPF Urine Bacteria RARE None Seen /HPF Urine Hyaline Casts 2-5 H 0-1 /LPF /LPF Urine Opiates Screen NEGATIVE NEGATIVE Urine Barbiturates Screen NEGATIVE NEGATIVE Urine Phencyclidine Screen NEGATIVE NEGATIVE Urine Amphetamines Screen NEGATIVE NEGATIVE Urine Benzodiazepines Screen NEGATIVE NEGATIVE Urine Cocaine Screen NEGATIVE NEGATIVE Urine Marijuana (THC) Screen NEGATIVE NEGATIVE Current Medications Medications (Trade) Dose Ordered Sig/Juan Route PRN Reason Start Time Stop Time Status Last Admin Dose Admin Clonidine HCl (CATApres 0.1 mg TAB) 0.1 mg BID PO 10/02/24 21:00 11/01/24 20:59 10/02/24 15:02 0.1 MG Pharmacy Profile Note (Pharmacy Communication) 1 each Q5MIN MISC 10/02/24 17:00 10/02/24 17:27 DC 10/02/24 17:10 1 EACH DIAGNOSTICS / RADIOLOGY: [ ] ASSESSMENT: Uncontrolled hypertension POA Hyponatremia POA Acute kidney injury POA Acute urinary tract infection POA Depression POA Anxiety POA Insomnia POA Uncontrolled diabetes POA Coronary artery disease with cardiac stent x2 POA Hyperlipidemia POA Hypothyroidism POA PLAN: We will admit patient in medical telemetry We will heart healthy and consistent carb diet We will start NS @ 75ml / hr x 2 bags and re evaluate We will start patient on Rocephin 1 gram IV bid for empiric coverage We will start on Famotidine 20 mg po Q48 H for GI prophylaxis We will replace electrolytes as needed per protocol We will start on insulin sliding scale AC & HS with hypoglycemia protocol We will add prn medication for fever,pain, insomnia ,constipation,nausea & vomiting We will reconcile home meds once medlist available We will request labs in am Will seek Psychiatric evaluation Further orders to follow depending on above results Case discussed with attending physician and came up with above treatment and plan of care. ADVANCED CARE PLANNING 1. Which of the following were discussed? Hospice Care - No Therapeutic options - Yes Advance Directives - No Other discussions - 2. Discussed with who? Patient 3. Voluntary nature of this service was explained to the patient? Yes 4. Amount of time spent - _19 5. Reviewed by Physician? (if this service was performed by NPP) Yes Patient seen and examined by me. Agree with note by PRINTING PRESS OPERATOR SEE ADDITIONAL ORDERS PER CHART DISCUSSED WITH NURSING STAFF ALFREDO RUIZ ERGONOMIC SPECIALIST Oct 02, 2024 19:17
[2024-10-02] MEDS ORDERED: PoTASSium chloRIDE 20MEQ/100ML 100 ML IV PRN (19:30)
[2024-10-02] MEDS ORDERED: PoTASSium chl 10% ELIXIR 20MEQ 20 MEQ/15 ML UDCUP PO PRN (19:30)
[2024-10-02] MEDS ORDERED: GLUCAGON 1MG KIT 1 MG ML IM PRN (19:30)
[2024-10-02] MEDS ORDERED: PoTASSium chloRIDE 20MEQ ER 20 MEQ ERTAB PO PRN (19:30)
[2024-10-02] MEDS ORDERED: DEXTROSE 50%-WATER 50 ML DISP.SYRIN IV PRN (19:30)
[2024-10-02] MEDS ORDERED: ondanSETRON 4MG INJ IV PRN (19:30)
[2024-10-02] MEDS ORDERED: acetaMINOPHEN 325 MG TAB PO PRN ×2 (19:30)
[2024-10-02] MEDS ORDERED: MAGNESIUM 2GM PREMIX 50ML 50 ML IV PRN (19:30)
[2024-10-02] MEDS: cefTRIAXone 1G VIAL IV SCH (19:46)
[2024-10-02] MEDS: 0.9%NACL 1000ML 1,000 ML IV SCH (20:22)
[2024-10-02] MEDS ORDERED: LACTULOSE 20 GM/30 ML UDCUP PO PRN (21:00)
[2024-10-02] MEDS: INSULIN humuLIN R 100 UNIT/ML 3ML SQ SCH (21:00)
[2024-10-02] MEDS: FAMOTIDINE 20MG TAB PO SCH (21:15)
[2024-10-02] MEDS: atorVAStatin 20 MG TABLET PO SCH (21:15)
--- NOTE | 2024-10-02 22:49 | NUR ---
PT MOVED TO RM 20 AT THIS TIME.
[2024-10-03] VITALS: O2SAT 99
[2024-10-03 00:09] VITALS: BP 142/49; PULSE 59; RESP 16; TEMP 97.8
[2024-10-03 04:00] VITALS: BP 107/50; PULSE 54; RESP 16; TEMP 98.7
[2024-10-03] MEDS: levoTHYROxine 75 MCG TABLET PO SCH (06:15)
[2024-10-03 06:55] LABS: BASOPHILS # (AUTO) 0.04 K/uL (0.00-0.20); BASOPHILS % (AUTO) 0.4 % (0.0-5.0); EOSINOPHILS % (AUTO) 1.1 % (0.0-8.0); HEMATOCRIT 31.2 % (36-48); IMMATURE GRANULOCYTE ABSOLUTE 0.06 K/uL (0-1); LYMPHOCYTES # (AUTO) 1.8 K/uL (1.0-4.8); MEAN CORPUSCULAR HEMOGLOBIN 30.5 pg (27.0-33.0); MEAN CORPUSCULAR HGB CONC 34.3 g/dL (32.0-36.0); MEAN CORPUSCULAR VOLUME 88.9 fL (79-99); MONOCYTES # (AUTO) 0.7 K/uL (0.1-1.0); MONOCYTES % (AUTO) 7.6 % (3.0-13.0); NEUTROPHILS # (AUTO) 6.5 K/uL (1.8-7.7); NEUTROPHILS % (AUTO) 70.2 % (40.0-77.0); PLATELET COUNT (AUTO) 297 K/uL (130-400); RED BLOOD CELL COUNT(AUTO) 3.51 MIL/uL (4.00-5.50); RED CELL DISTRIBUTION WIDTH 12.8 % (11.0-15.5); WHITE BLOOD COUNT (AUTO) 9.2 K/uL (4.8-10.8)
--- NOTE | 2024-10-03 07:10 | NUR ---
1:1 sitter at bedside
--- NOTE | 2024-10-03 07:10 | NUR ---
assumed acre at this time pt aox3 deneis suicidal and homicidal ideations
[2024-10-03 07:37] LABS: ALBUMIN 3.3 g/dL (3.5-5.0); BILIRUBIN,TOTAL 0.4 mg/dL (0.2-1.0); POTASSIUM 4.9 mmol/L (3.5-5.1); THYROID STIMULATING HORMONE 2.03 uIU/mL (0.36-3.74)
[2024-10-03 07:39] LABS: HEMOGLOBIN A1C 6.6 % (4.0-6.0)
--- NOTE | 2024-10-03 07:53 | EKG ---
[facility] Test Date: 2024-10-02 Test Time: 13:57:01 Pat Name: JOCELYNE LIVINGSTON Department: [facility] Room: 427 Gender: F Musical Therapist: [id number] : 1945 Requested By: JESSICA RADER Order Number: [id number] Reading MD: Devan Sargent Measurements Intervals [place] Rate: 81 P: 52 AL: 168 QRS: -27 QRSD: 78 T: 90 QT: 335 QTc: 388 Interpretive Statements Sinus rhythm Probable LVH with secondary repol abnrm Compared to ECG 10/02/2023 06:41:43 T-wave abnormality no longer present Electronically Signed On 10-06-2024 19:52:07 C.O.D. BILLER by Devan Sargent Please click the below link to view image of tracing.
[2024-10-03] MEDS: cloPIDOgrel 75MG TAB PO SCH (08:54)
[2024-10-03] MEDS: ASPIRIN 81 MG EC TAB PO SCH (08:54)
--- NOTE | 2024-10-03 11:07 | NUR ---
DCP: HOME Sw spoke to nurse Clay. Pt has been screened by [facility] does not meet criteria for psych placement. Pt on . Sw met with pt who reports that her 4yrs ago from Covid. states he was brought here and after 8 days. Pt never saw once he was admitted. This has been a difficult grieving process for pt. Pt has never gotten bereavement counseling or psych care. Pt has never been dx with any mental health disorder believes she can have depression. Pt denies any hx ideations, but does admit she is ready to "go be with her ". Pt states she would never hurt herself, she has her family to live for. Pt admits to telling her children this often, and understand everyone's concern, but states she would never hurt herself. Pt lives at home alone, but her son Mike Obregon [phone] spends the nights and daughter Annamaria Dong [phone] is pt's provider 30hrs a week. Daughter assists pt as needed. Pt states she is independent of her ADLS, uses no DME or HH. PCP is [facility] and uses [facility] for rx. DCP is home Addendum: 10/03/24 at 1117 by JOHANNY FRY Amended: Links added.
--- NOTE | 2024-10-03 12:30 | NUR ---
CALLED DAUGHTER TO NOTIFY PT IS IN ROOM 427
--- NOTE | 2024-10-03 14:00 | PN ---
[facility] PROGRESS NOTE Date of Service: Oct 03, 2024 Time of Service: 13:57 SUBJECTIVE: [ ] The patient has been seen and examined during my rounding, no acute events overnight, comfortably in bed, blood pressure 129/54, afebrile, saturating normal on room air. Patient with sitter at bedside, denies suicidal or homicidal ideation, however feeling depressed. No family at bedside during my visit. REVIEW OF SYSTEMS CONSTITUTIONAL: Complain of generalized body weakness Denies fevers, chills, or night sweats. No unintentional weight loss reported. NEUROLOGICAL: Denies headache, amaurosis fugax, motor weakness, sensory deficit, vertigo/spinning sensation, gait abnormalities, or tremors. ENT: No hearing loss, otalgia, otorrhea, rhinitis, rhinorrhea, hoarseness, or sore throat. CARDIOVASCULAR: Denies any exertional angina, dyspnea on exertion, orthopnea, paroxysmal nocturnal dyspnea, palpitations, life-threatening arrhythmias, claudication. PULMONARY: Denies any shortness of breath, cough, phlegm/sputum, hemoptysis, pleuritic chest pain. SLEEP: Denies morning headaches, daytime somnolence or napping. Denies difficulty falling asleep, staying asleep, waking from sleep. Denies knowledge of snoring. GASTROINTESTINAL: Denies any type of dysphagia to either liquids or solids. Denies nausea, vomiting, pyrosis, early satiety, abdominal pain, diarrhea, constipation, or changes in stool consistency or caliber. Denies coffee-ground emesis, hematemesis, hematochezia, or melanotic stools. GENITOURINARY: Denies frequency, urgency, nocturia, hematuria or incontinence (Storage/Irritative symptoms.) Low urinary stream, straining to void, urinary intermittency or hesitancy, splitting of the voiding stream, terminal dribbling. ENDOCRINOLOGIC: Denies polyuria, polydipsia, polyphagia or heat/cold intolerances. HEMATOLOGIC: Denies thrombophilia/previous clots, or coagulopathy/bleeding disorders. ONCOLOGIC: Denies personal history of malignancy. DERMATOLOGIC: Denies rashes or pruritus. PSYCHIATRIC: Denies any suicidal or homicidal ideation. Denies hallucinations. PHYSICAL EXAM GENERAL APPEARANCE: The patient is awake, alert, and oriented, in no acute cardiopulmonary distress. NEUROLOGICAL: Cranial nerves II-XII grossly intact. Motor is 5/5 in bilateral upper and lower extremities proximal to distal. No sensory deficits. HEENT: Face is symmetric. Pupils are equal and reactive. Extraocular movements are intact. NECK: Supple. No JVD. No thyromegaly. No submental, submandibular, pre- /postauricular, occipital or supraclavicular lymphadenopathy. CHEST: Normal chest expansion. No Telemetry. LUNGS: Absence of any rales, rhonchi or any wheezing. CARDIOVASCULAR: Regular. S1 and S2 normal. No appreciable rubs, murmurs or gallops. ABDOMEN: Soft, nontender, and nondistended. There is no rebound, voluntary guarding, or rigidity. : Deferred. No Vann. EXTREMITIES: Non-edematous and not cyanotic. No clubbing. Good capillary refill. SKIN: No skin breakdown. Vital Signs (last 8hr) Date Time Temp Pulse Resp B/P (MAP) Pulse Ox O2 Delivery O2 Flow Rate FiO2 10/03/24 10:43 98.8 62 16 129/54 96 Room Air* 0 21 10/03/24 08:54 66 162/72 10/03/24 07:10 98.8 63 16 107/50 96 Room Air* 0 21 LABS: Laboratory: Test 10/03/24 06:43 10/03/24 06:18 10/02/24 14:21 10/02/24 14:14 Range/Units White Blood Count 9.2 4.8-10.8 K/uL Red Blood Count 3.51 L 4.00-5.50 MIL/uL Hemoglobin 10.7 L 12.0-16.0 g/dL Hematocrit 31.2 L 36-48 % Mean Corpuscular Volume 88.9 79-99 fL Mean Corpuscular Hemoglobin 30.5 27.0-33.0 pg Mean Corpuscular Hemoglobin Concent 34.3 32.0-36.0 g/dL Red Cell Distribution Width 12.8 11.0-15.5 % Platelet Count 297 130-400 K/uL Mean Platelet Volume 9.9 7.5-10.5 fL Immature Granulocyte % (Auto) 0.7 0-1 % Neutrophils (%) (Auto) 70.2 40.0-77.0 % Lymphocytes (%) (Auto) 20.0 L 21.0-51.0 % Monocytes (%) (Auto) 7.6 3.0-13.0 % Eosinophils (%) (Auto) 1.1 0.0-8.0 % Basophils (%) (Auto) 0.4 0.0-5.0 % Neutrophils # (Auto) 6.5 1.8-7.7 K/uL Lymphocytes # (Auto) 1.8 1.0-4.8 K/uL Monocytes # (Auto) 0.7 0.1-1.0 K/uL Eosinophils # (Auto) 0.10 0.00-0.70 K/uL Basophils # (Auto) 0.04 0.00-0.20 K/uL Absolute Immature Granulocyte (auto 0.06 0-1 K/uL Nucleated Red Blood Cells 0.0 0.0-0.19 % Sodium Level 134 L 136-145 mmol/L Potassium Level 4.9 3.5-5.1 mmol/L Chloride Level 101 101-111 mmol/L Carbon Dioxide Level 26 21-32 mmol/L Blood Urea Nitrogen 11 7-18 mg/dL Creatinine 1.0 0.5-1.0 mg/dL Glomerular Filtration Rate Calc 58 >90 mL/min Random Glucose 141 H 70-105 mg/dL Hemoglobin A1c 6.6 H 4.0-6.0 % Estimated Average Glucose (eAG) 143 H 70-126 mg/dL Total Calcium 7.9 L 8.5-10.1 mg/dL Total Bilirubin 0.4 0.2-1.0 mg/dL Aspartate Amino Transf (AST/SGOT) 22 10-37 U/L Alanine Aminotransferase (ALT/SGPT) 21 12-78 U/L Alkaline Phosphatase 84 50-136 U/L Total Protein 6.0 6.0-8.3 g/dL Albumin 3.3 L 3.5-5.0 g/dL Thyroid Stimulating Hormone (TSH) 2.03 0.36-3.74 uIU/mL Whole Blood Glucose 166 H 70-110 MG/DL White Cell Morphology Comment See comments Troponin I High Sensitivity 23 4-50 ng/L Salicylates Level < 2.8 L 2.8-20.0 mg/dL Acetaminophen Level < 1 L 10-30 mcg/mL Serum Alcohol < 3 0-10 mg/dL Urine Color LIGHT-YELLOW YELLOW Urine Appearance CLOUDY H CLEAR Urine pH 5.0 5.0-8.0 Urine Specific Deport 1.014 1.001-1.031 Urine Protein 10 H NEGATIVE mg/dL Urine Glucose (UA) 200 H NEGATIVE mg/dL Urine Ketones NEGATIVE NEGATIVE mg/dL Urine Occult Blood SMALL H NEGATIVE Urine Nitrate NEGATIVE NEGATIVE Urine Bilirubin NEGATIVE NEGATIVE mg/dL Urine Urobilinogen 0.2 0.2-1.0 mg/dL Urine Leukocyte Esterase 250 H NEGATIVE Kole/uL Urine RBC 2-5 H 0-1 /HPF Urine WBC 6-10 H 0-1 /HPF Urine Squamous Epithelial Cells RARE 0-2 /HPF Urine Bacteria RARE None Seen /HPF Urine Hyaline Casts 2-5 H 0-1 /LPF /LPF Urine Opiates Screen NEGATIVE NEGATIVE Urine Barbiturates Screen NEGATIVE NEGATIVE Urine Phencyclidine Screen NEGATIVE NEGATIVE Urine Amphetamines Screen NEGATIVE NEGATIVE Urine Benzodiazepines Screen NEGATIVE NEGATIVE Urine Cocaine Screen NEGATIVE NEGATIVE Urine Marijuana (THC) Screen NEGATIVE NEGATIVE Current Medications Medications (Trade) Dose Ordered Sig/Juan Route PRN Reason Start Time Stop Time Status Last Admin Dose Admin Acetaminophen (TYLenol 325MG TAB) 650 mg Q4H PRN PO MILD PAIN (1-3) 10/02/24 19:30 10/02/24 19:24 DC Acetaminophen (TYLenol 325MG TAB) 650 mg Q6H PRN PO TEMPERATURE GREATER THAN 101.5 10/02/24 19:30 10/02/24 19:24 DC Aspirin (Aspirin 81mg Ec Tab) 81 mg DAILY PO 10/03/24 09:00 11/02/24 08:59 10/03/24 08:54 81 MG Atorvastatin Calcium (LIPItor 20MG) 20 mg HS PO 10/02/24 21:00 11/01/24 20:59 10/02/24 21:15 20 MG Ceftriaxone Sodium (ROCEphine 1G INJ) 1 gm BID IV 10/02/24 21:00 10/12/24 20:59 10/03/24 08:54 1 GM Clonidine HCl (CATApres 0.1 mg TAB) 0.1 mg BID PO 10/02/24 21:00 11/01/24 20:59 10/03/24 08:54 0.1 MG Clopidogrel Bisulfate (plaVIX 75MG) 75 mg DAILY PO 10/03/24 09:00 11/02/24 08:59 10/03/24 08:54 75 MG Dextrose (D50w) 50 ml AD PRN IV HYPOGLYCEMIA PROTOCOL 10/02/24 19:30 11/01/24 19:29 Famotidine (Pepcid 20mg Tab) 20 mg Q48H PO 10/02/24 21:00 11/01/24 20:59 10/02/24 21:15 20 MG Glucagon (Glucagon 1mg Kit) 1 mg AD PRN IM HYPOGLYCEMIA PROTOCOL 10/02/24 19:30 11/01/24 19:29 Hydralazine HCl (APRESOLine 20MG INJ) 10 mg Q6H PRN IV For:SBP above 160;DBP above 90 10/02/24 19:30 11/01/24 19:29 Insulin Human Regular (humuLIN R 100 UNIT/ML 3ML) INSULIN SLIDING SCAL... ACHS SQ 10/02/24 21:00 11/01/24 20:59 Lactulose (Constulose 20gm/ 30ml Udcup) 20 gm BID PRN PO CONSTIPATION 10/02/24 21:00 11/01/24 20:59 Levothyroxine Sodium (SYNTHroid 75MCG TAB) 75 mcg SYN PO 10/03/24 06:30 11/02/24 06:29 10/03/24 06:15 75 MCG Magnesium Sulfate 50 ml @ 0 mls/hr PROTOCOL PRN IV OTHER [SEE ORDER COMMENTS] 10/02/24 19:30 11/01/24 19:29 Ondansetron HCl (zoFRAN 4MG INJ) 4 mg Q6H PRN IV NAUSEA/VOMITING 10/02/24 19:30 11/01/24 19:29 Pharmacy Profile Note (Pharmacy Communication) 1 each Q5MIN MISC 10/02/24 17:00 10/02/24 17:27 DC 10/02/24 17:10 1 EACH Potassium Chloride 100 ml @ 100 mls/hr AD PRN IV POTASSIUM PROTOCOL 10/02/24 19:30 11/01/24 19:29 Potassium Chloride (K-Dur/Klor-Con 20meq) 20 meq AD PRN PO POTASSIUM PROTOCOL 10/02/24 19:30 11/01/24 19:29 Potassium Chloride (KCl 10% Elixir 20meq/15ml) 20 meq AD PRN PO POTASSIUM PROTOCOL 10/02/24 19:30 11/01/24 19:29 Sodium Chloride 1,000 ml @ 75 mls/hr [id number] IV 10/02/24 19:30 11/01/24 19:29 10/02/24 20:22 75 MLS/HR Zolpidem Tartrate (AmbIEN) 2.5 mg HS PRN PO insomnia 10/02/24 21:00 11/01/24 20:59 DIAGNOSTICS / RADIOLOGY: [ ] CHEST 1VW REASON: CHEST PAIN COMPARISON: 09/27/2023 FINDINGS: Single view of the chest was obtained. Lungs are clear. Heart size is normal. There is no pulmonary vascular congestion. Mediastinum and bony thorax appear unremarkable. IMPRESSION: 1. Normal single view chest x-ray. ASSESSMENT: Uncontrolled hypertension POA Hyponatremia POA Acute kidney injury POA Acute urinary tract infection POA Depression POA Anxiety POA Insomnia POA Uncontrolled diabetes POA Coronary artery disease with cardiac stent x2 POA Hyperlipidemia POA Hypothyroidism POA PLAN: Patient to be admitted to the medical floor Continue heart healthy diet Supportive care with IV fluids Continue on on Rocephin 1 gram IV bid for empiric coverage Follow results of urine culture and adjust antibiotics accordingly Continue on Famotidine 20 mg po Q48 H for GI prophylaxis We will replace electrolytes as needed per protocol Continue on insulin sliding scale AC & HS with hypoglycemia protocol Continue prn medication for fever,pain, insomnia ,constipation,nausea & vomiting Replace electrolytes IV per protocol A.m. labs Will seek Psychiatric evaluation Further orders to follow depending on above results JIAN SIMPSON MD Oct 03, 2024 14:00
[2024-10-03 19:00] VITALS: BP 141/58; PULSE 70; RESP 20; TEMP 98.2
[2024-10-03] MEDS: ZOLPidem TARTrate 5 MG TAB PO PRN (20:59)
[2024-10-03 21:00] VITALS: O2SAT 98
[2024-10-04] VITALS (7 sets, daily range): BP systolic 134–175; BP diastolic 59–70; PULSE 64–92; RESP 18–20; TEMP 98.1–98.5; O2SAT 97
[2024-10-04 05:21] LABS: HEMATOCRIT 32.6 % (36-48); MEAN CORPUSCULAR HEMOGLOBIN 30.5 pg (27.0-33.0); MEAN CORPUSCULAR HGB CONC 33.7 g/dL (32.0-36.0); MEAN CORPUSCULAR VOLUME 90.3 fL (79-99); RED BLOOD CELL COUNT(AUTO) 3.61 MIL/uL (4.00-5.50); WHITE BLOOD COUNT (AUTO) 8.5 K/uL (4.8-10.8)
[2024-10-04 05:44] LABS: ALBUMIN 3.2 g/dL (3.5-5.0); BILIRUBIN,TOTAL 0.2 mg/dL (0.2-1.0); MAGNESIUM 1.9 mg/dL (1.80-2.40); POTASSIUM 5.1 mmol/L (3.5-5.1); TOTAL PROTEIN, SERUM 6.4 g/dL (6.0-8.3)
[2024-10-04] MEDS: hydrALAZine 20MG/ML VIAL IV PRN (07:48)
--- NOTE | 2024-10-04 10:02 | NUR ---
SITTER REMOVAL PT WAS CLEARED BY BLESSING MELGAR. STATES WAS NEVER HAVING SUICIDAL THOUGHTS AND WAS JUST FEELING DOWN FOR MISSING HER . CSSRS ASSESSMENT COMPLETED. PT NO LONGER MEETS CRITERIA FOR SITTER THEREFORE SITTER WAS REMOVED. DAUGHTER IS AT BEDSIDE.
[2024-10-04] MEDS ORDERED: CEFD300C3 PO (12:05)
[2024-10-04] MEDS ORDERED: CLON0.1T2 PO (12:05)
--- NOTE | 2024-10-04 12:10 | DS ---
Discharge Summary Hospital Course Summary: This is a 78-year-old female,[place] speaking past medical history of anemia, spinal fracture, breast cancer, osteoporosis, diabetes, hyperlipidemia, hypertension, hypothyroidism and coronary artery disease with cardiac stent x2 who presents to the ED accompanied with her daughter after coming from a [place] [facility] today was referred to this ED because patient expressed suicidal thoughts and expressed desire to while at the clinic. DURING THE COURSE OF STAY PATIENT WAS EVALUATED FROM [facility] PATIENT MEETS INPATIENT CRITERIA. UA WAS POSITIVE FOR LEUKOCYTES PATIENT WILL BE DISCHARGED ON CEFDINIR 300 MG P.O. B.I.D. FOR FIVE DAYS. PATIENT IS CLINICALLY AND MEDICALLY STABLE FOR DISCHARGE. Assessment/Plan: discharged dx/ Uncontrolled hypertension POA improved Hyponatremia POA resolved Acute kidney injury POA resolved Acute urinary tract infection POA Depression POA Anxiety POA Insomnia POA Uncontrolled diabetes POA Coronary artery disease with cardiac stent x2 POA Hyperlipidemia POA Hypothyroidism POA PLAN: ADMISSION DATE: OCTOBER 02, 2024 DISCHARGE DATE: October 04, 2024 DISPOSITION: [facility] CONDITION: Stable ELASTIC CUTTER(S): FOLLOW UP APPOINTMENT(S): PROCEDURES: NONE IMAGING (S) report attached to summary : MICROBIOLOGY: report attached to summary; URINE CULTURE ACTIVITY: AD RYAN TOLERATED HOME MEDICATIONS REMAIN THE SAME CHANGES ON HOME MEDICATIONS NONE NEW MEDICATIONS Cefdinir 300 Mg Capsule B.I.D. FOR FIVE DAYS Clonidine HCl (Catapress) 0.1 Mg Tab Home Medications: Active Scripts Clopidogrel Bisulfate (Clopidogrel) 75 Mg Tablet, 75 MG PO DAILY, #90 TAB 1 Refill Prov:VANGIE LLOYD DO 10/02/23 Aspirin (ASPIRIN 81 MG ECTAB) 81 Mg Ectab, 81 MG PO DAILY, #90 TAB.EC 2 Refills Prov:VANGIE LLOYD DO 10/02/23 Reported Medications Alcaftadine (Lastacaft Once Daily Relief) 0.25 % Drops, 1 DROP OU AM, DROP 09/27/23 Travoprost (Travatan-Z 0.004%) 0.004 % Opsol, 1 DROP OU HS, DROP 09/27/23 Sitagliptin Phosphate (Januvia) 100 Mg Tablet, 100 MG PO AM, TAB 09/27/23 Atorvastatin Calcium (Atorvastatin Calcium) 20 Mg Tablet, 20 MG PO HS, TAB 09/27/23 Metformin HCl (Metformin HCl) 500 Mg Tablet, 500 MG PO BID, TAB 09/27/23 Lisinopril (Lisinopril) 40 Mg Tablet, 40 MG PO AM, TAB 09/27/23 Levothyroxine Sodium (Levothyroxine) 75 Mcg Capsule, 75 MCG PO AM, CAP 09/27/23 Hydrochlorothiazide (Hydrochlorothiazide) 25 Mg Tablet, 25 MG PO AM, TAB 09/27/23 New Medications: Cefdinir (Cefdinir) 300 Mg Capsule 300 MG PO BID for 5 Days, #10 CAP Clonidine HCl (Catapress) 0.1 Mg Tab 0.1 MG PO BID for 30 Days, #60 TAB Continued Medications: Alcaftadine (Lastacaft Once Daily Relief) 0.25 % Drops 1 DROP OU AM, DROP Aspirin (Aspirin 81 Mg Ectab) 81 Mg Ectab 81 MG PO DAILY, #90 TAB.EC 2 Refills Atorvastatin Calcium (Atorvastatin Calcium) 20 Mg Tablet 20 MG PO HS, TAB Clopidogrel Bisulfate (Clopidogrel) 75 Mg Tablet 75 MG PO DAILY, #90 TAB 1 Refill Hydrochlorothiazide (Hydrochlorothiazide) 25 Mg Tablet 25 MG PO AM, TAB Levothyroxine Sodium (Levothyroxine) 75 Mcg Capsule 75 MCG PO AM, CAP Lisinopril (Lisinopril) 40 Mg Tablet 40 MG PO AM, TAB Metformin HCl (Metformin HCl) 500 Mg Tablet 500 MG PO BID, TAB Sitagliptin Phosphate (Januvia) 100 Mg Tablet 100 MG PO AM, TAB Travoprost (Travatan-Z 0.004%) 0.004 % Opsol 1 DROP OU HS, DROP Time spent arranging discharge: 31-60 minutes ATTESTATION BY PHYSICIAN I have seen and examined the patient. I reviewed the documentation, medical decision making, and treatment plan as noted by the resident provider above. I agree with the findings and plan of care. Barry Pisano MD, ELIZABETH NP Oct 04, 2024 12:09
--- NOTE | 2024-10-04 13:00 | NUR ---
DISCHARGE PT DC'D VIA WHEEL CHAIR WITH SON. IV SITE REMOVED. NO PAIN NOR COMPLAINTS AT TIME OF DISCHARGE. PT AOX4. VS STABLE
== END 2024-10-04 13:00 | disposition home or self-care (01) | DRG 683 ==
LOC: EDH 13:37 → EDHIP 18:23 → 4DH 10-03 12:41
PROVIDERS: ADMIT Internal Medicine; ATTEND Internal Medicine
DX: N17.9 Acute kidney failure, unspecified (principal); E87.1 Hypo-osmolality and hyponatremia; N39.0 Urinary tract infection, site not specified; I10 Essential (primary) hypertension; F32.A Depression, unspecified; F41.9 Anxiety disorder, unspecified; G47.00 Insomnia, unspecified; I25.10 Atherosclerotic heart disease of native coronary artery without angina pectoris; E11.65 Type 2 diabetes mellitus with hyperglycemia; E78.5 Hyperlipidemia, unspecified; E03.9 Hypothyroidism, unspecified; E87.8 Other disorders of electrolyte and fluid balance, not elsewhere classified; Z53.29 Procedure and treatment not carried out because of patient's decision for other reasons; Z81.8 Family history of other mental and behavioral disorders; Z83.3 Family history of diabetes mellitus; Z85.3 Personal history of malignant neoplasm of breast; Z90.11 Acquired absence of right breast and nipple; Z95.5 Presence of coronary angioplasty implant and graft; Z90.710 Acquired absence of both cervix and uterus
CPT/HCPCS: 36415; 71045; 80048; 80053; 80305; 81001; 82948; 83036; 83735; 84443; 84484; 85025; 85027; 87086; 93005; 99285; G0378; G0481; J0360; J0696

== ENCOUNTER 2024-10-21 10:31 | Emergency (ER) | payer MEDICARE ==
[~2024-10-21] VITALS: Ht 157.5 cm; Wt 57.2 kg
[~2024-10-21 10:31] MED LIST changes: +CEFD300C3 PO; +CLON0.1T2 PO
--- NOTE | 2024-10-21 10:47 | ERN ---
General Chief Complaint: Chest Pain Stated Complaint: CP Time Seen by MD: 10:33 History of Present Illness Initial Comments 78-year-old female presents to the ED for evaluation of chest pain onset 1 week ago. Patient reports she was sent to the ED from Dr. Diaz's office for evaluation of HTN and chest pain. Patient mentioned she had been experiencing cough and sustained a fall 6 days ago and is now complaining of epigastric pain and left shoulder pain, but denies any head injury or any other associated symp toms at this time. Patient reports she waited to be evaluated due to being [place] weekend. EMS administered 324 mg of aspirin and 1 of nitro, with minimal relief of symptoms and report an initial BP of 203/104. Patient also mentioned she has not been taking her clonidine medication since it usually makes her dizzy. Allergies: Coded Allergies: acetaminophen (Unverified Adverse Reaction, Mild, SWELLING, 04/18/18) patient states, "i have eye swelling with tylenol 500mg by mouth, but i can take the tylenol 325mg by mouth and no problems." Home Meds Active Scripts Cefdinir (Cefdinir) 300 Mg Capsule, 300 MG PO BID for 5 Days, #10 CAP Prov:JASON KU NP 10/04/24 Clonidine HCl (Catapress) 0.1 Mg Tab, 0.1 MG PO BID for 30 Days, #60 TAB Prov:JASON KU NP 10/04/24 Clopidogrel Bisulfate (Clopidogrel) 75 Mg Tablet, 75 MG PO DAILY, #90 TAB 1 Refill Prov:VANGIE LLOYD DO 10/02/23 Aspirin (ASPIRIN 81 MG ECTAB) 81 Mg Ectab, 81 MG PO DAILY, #90 TAB.EC 2 Refills Prov:VANGIE LLOYD DO 10/02/23 Reported Medications Alcaftadine (Lastacaft Once Daily Relief) 0.25 % Drops, 1 DROP OU AM, DROP 09/27/23 Travoprost (Travatan-Z 0.004%) 0.004 % Opsol, 1 DROP OU HS, DROP 09/27/23 Sitagliptin Phosphate (Januvia) 100 Mg Tablet, 100 MG PO AM, TAB 09/27/23 Atorvastatin Calcium (Atorvastatin Calcium) 20 Mg Tablet, 20 MG PO HS, TAB 09/27/23 Metformin HCl (Metformin HCl) 500 Mg Tablet, 500 MG PO BID, TAB 09/27/23 Lisinopril (Lisinopril) 40 Mg Tablet, 40 MG PO AM, TAB 09/27/23 Levothyroxine Sodium (Levothyroxine) 75 Mcg Capsule, 75 MCG PO AM, CAP 09/27/23 Hydrochlorothiazide (Hydrochlorothiazide) 25 Mg Tablet, 25 MG PO AM, TAB 09/27/23 Past Medical History Past Medical History: Cancer, Diabetes-Type II, High Cholesterol, Hypertension, Hypothyroid Medical History Other: GASTRITIS, OSTEOPORSIS Past Surgical History: Hysterectomy, Other Surgical History Other: RT MASTECTOMY Female( History) History: Not Applicable ROS Dictation Constitutional: Negative for fever,chills, and weight loss Eyes: Negative for injury, pain,redness, and discharge ENT: Negative for injury,pain or swelling Cardiovascular: Positive for chest pain, negative for palpitations, and edema Respiratory: Positive for cough,Negative for shortness of breath and wheezing, Abdomen/GI: Positive for epigastric pain, negative for nausea, vomiting, diarr hea, and constipation Back: Negative for injury and pain : Negative for injury, bleeding and discharge MS/Extremity: Positive for left shoulder pain Negative for deformity Skin: Negative for rash, and discoloration Neuro: Negative for headache, weakness, numbness, tingling, and seizure Psych: Negative for suicide ideation, homicidal ideation, and hallucinations Physical Exam Physical Exam Dictation General: awake, alert, NAD Head/Face: Normocephalic, atraumatic Eyes: PERRL, EOMI, vision at baseline ENT: oral cavity clear, TMs clear, no signs of infection Neck: Trachea midline, supple, no nuchal rigidity Cardiovascular: RRR, normal S1/S2, No MRGs, no JVD Respiratory: CTAB, no respiratory distress, No rales or wheezes Abdomen: Soft, non-tender, non-distended, normal bowel sounds, no guarding or rebound. Skin: Warm, dry, normal turgor, no rash MS/Extremity: Pulses equal, no cyanosis, neurovascular intact, FROM Neuro: COAx4, GCS 15, strength 5/5, CN 2-12 intact, normal cerebellar exam, normal gait, Psych: Normal behavior, mood, and affect normal Results Laboratory and Microbiology Lab and Micro Result Laboratory Tests Test 10/21/24 10:50 10/21/24 13:00 White Blood Count 7.9 K/uL (4.8-10.8) Red Blood Count 4.05 MIL/uL (4.00-5.50) Hemoglobin 12.4 g/dL (12.0-16.0) Hematocrit 37.2 % (36-48) Mean Corpuscular Volume 91.9 fL (79-99) Mean Corpuscular Hemoglobin 30.6 pg (27.0-33.0) Mean Corpuscular Hemoglobin Concent 33.3 g/dL (32.0-36.0) Red Cell Distribution Width 13.3 % (11.0-15.5) Platelet Count 292 K/uL (130-400) Mean Platelet Volume 10.2 fL (7.5-10.5) Immature Granulocyte % (Auto) 0.9 % (0-1) Neutrophils (%) (Auto) 73.9 % (40.0-77.0) Lymphocytes (%) (Auto) 17.7 % (21.0-51.0) L Monocytes (%) (Auto) 5.9 % (3.0-13.0) Eosinophils (%) (Auto) 1.0 % (0.0-8.0) Basophils (%) (Auto) 0.6 % (0.0-5.0) Neutrophils # (Auto) 5.8 K/uL (1.8-7.7) Lymphocytes # (Auto) 1.4 K/uL (1.0-4.8) Monocytes # (Auto) 0.5 K/uL (0.1-1.0) Eosinophils # (Auto) 0.08 K/uL (0.00-0.70) Basophils # (Auto) 0.05 K/uL (0.00-0.20) Absolute Immature Granulocyte (auto 0.07 K/uL (0-1) Nucleated Red Blood Cells 0.0 % (0.0-0.19) Prothrombin Time 10.7 SEC (9.6-11.6) Prothromb Time International Ratio 0.99 (0.85-1.15) Activated Partial Thromboplast Time 25.7 SEC (26.3-35.5) L Sodium Level 138 mmol/L (136-145) Potassium Level 4.5 mmol/L (3.5-5.1) Chloride Level 101 mmol/L (101-111) Carbon Dioxide Level 27 mmol/L (21-32) Blood Urea Nitrogen 17 mg/dL (7-18) Creatinine 1.0 mg/dL (0.5-1.0) Glomerular Filtration Rate Calc 58 mL/min (>90) Random Glucose 169 mg/dL (70-105) H Total Calcium 8.7 mg/dL (8.5-10.1) Magnesium Level 1.90 mg/dL (1.80-2.40) Total Bilirubin 0.3 mg/dL (0.2-1.0) Aspartate Amino Transf (AST/SGOT) 24 U/L (10-37) Alanine Aminotransferase (ALT/SGPT) 28 U/L (12-78) Alkaline Phosphatase 121 U/L (50-136) Total Creatine Kinase 89 U/L (21-232) # Troponin I High Sensitivity 8 ng/L (4-50) B-Type Natriuretic Peptide 67 pg/mL (0-100) Total Protein 7.7 g/dL (6.0-8.3) Albumin 3.8 g/dL (3.5-5.0) Lipase 87 U/L (16-77) H Urine Color LIGHT-YELLOW (YELLOW) Urine Appearance CLEAR (CLEAR) Urine pH 6.0 (5.0-8.0) Urine Specific [place] 1.005 (1.001-1.031) Urine Protein NEGATIVE mg/dL (NEGATIVE) Urine Glucose (UA) NEGATIVE mg/dL (NEGATIVE) Urine Ketones NEGATIVE mg/dL (NEGATIVE) Urine Occult Blood NEGATIVE (NEGATIVE) Urine Nitrate NEGATIVE (NEGATIVE) Urine Bilirubin NEGATIVE mg/dL (NEGATIVE) Urine Urobilinogen 0.2 mg/dL (0.2-1.0) Urine Leukocyte Esterase NEGATIVE [place]/uL Labs Reviewed?: Yes EKG/XRAY/US/CT/MRI EKG Comment EKG 10/21/2024 time 1033 ventricular rate 93, ID 135, QRS 77, QT 338 sinus rhythm, probable LVH with secondary repolarization abnormality. No STEMI MDM MDM: Differential diagnosis: Chest pain, epigastric pain, uncontrolled HTN, fall Previous outside records reviewed: Old ER visits. Need for hospitalization: Patient does not meet criteria for hospitalization. Need for emergency major/minor surgery: No Patient's prior external medical records from other ER visits were reviewed by me as indicated. Prior testing and results from previous visits were reviewed. Prior tests were taken into account with medical decision making and resource utilization, independent historian/historians were used to obtain complete medical history. I independently interpreted the test that were performed, results were reviewed by me and considered findings on radiology if ordered. Medical management and examination interpretation discussions were had by me with other qualified healthcare professionals as indicated for the patient's care. ED Course Orders Procedure Category Date Status Time Cbc With Differential LAB 10/21/24 Complete 10:36 Prothrombin Time With LAB 10/21/24 Complete INR 10:36 B-Type Natriuretic LAB 10/21/24 Complete Peptide 10:36 Chest 1vw RAD 10/21/24 Resulted 10:36 12 Lead Ekg Tracing- EKG 10/21/24 Complete Technical 10:36 Magnesium LAB 10/21/24 Complete 10:36 Creatine Kinase, Total LAB 10/21/24 Complete 10:36 Troponin I High LAB 10/21/24 Complete Sensitivity 10:36 Urinalysis Profile LAB 10/21/24 Complete 10:36 Partial LAB 10/21/24 Complete Thromboplastin Time 10:36 Comprehensive LAB 10/21/24 Complete Metabolic Panel 10:36 Lipase LAB 10/21/24 Complete 10:36 Pantoprazole 40mg Inj PHA 10/21/24 Complete (Protonix 40mg Inj 11:00 Nitroglycerin 0.4mg PHA 10/21/24 In Process Sl Tab (Nitrostat) 11:30 Ct Abdomen/Pelvis CT 10/21/24 Resulted W/Contrast 12:36 Iohexol (Omnipaque) PHA 10/21/24 Complete 13:39 Hydralazine 20mg Inj PHA 10/21/24 Complete (Apresoline 20mg In 15:00 Current Medications Medications (Trade) Dose Ordered Sig/Juan Route PRN Reason Start Time Stop Time Status Last Admin Dose Admin Hydralazine HCl (APRESOLine 20MG INJ) 10 mg ONCE ONCE IV 10/21/24 15:00 10/21/24 15:01 DC 10/21/24 15:03 Iohexol (Omnipaque) 75 ml STK-MED ONCE IV 10/21/24 13:39 10/21/24 13:41 DC Nitroglycerin (Nitrostat) 0.4 mg AD PRN SL CHEST PAIN 10/21/24 11:30 11/20/24 11:29 10/21/24 11:25 Pantoprazole Sodium (PROTonix 40MG INJ) 40 mg ONCE ONCE IVP 10/21/24 11:00 10/21/24 11:01 DC 10/21/24 10:59 Vital Signs Date Time Temp Pulse Resp B/P (MAP) Pulse Ox O2 Delivery O2 Flow Rate FiO2 10/21/24 15:12 98.1 89 15 191/83 99 Room Air* 0 10/21/24 12:45 205/84 Room Air* 0 10/21/24 12:30 199/94 Room Air* 0 10/21/24 11:20 98.1 86 15 200/89 99 Room Air* 0 10/21/24 10:55 98.1 83 15 199/84 99 Room Air* 0 10/21/24 10:39 98.1 93 15 241/101 99 Room Air* 0 10/21/24 10:32 98.1 93 15 241/101 99 Room Air 0 HEART Score Response (Comments) Value History: Low suspicion (0) 0 EKG: Normal 0 Age: > 65yrs (+2) 2 Risk Factors: 1-2 risk factors (+1) 1 Initial Troponin: Normal limit (0) 0 HEART Score Risk: Low Risk for MACE (1-3) Total 3 DX & DISP Disposition: Discharge Departure Impression: Primary Impression: Viral gastroenteritis Additional Impression: Hypertension, uncontrolled Condition: Stable Scripts Pantoprazole Sodium (Protonix) 40 Mg Ectab 1 TAB PO DAILY for 30 Days, #30 TAB 0 Refills Prov: PRISCILLA SOTO MD 10/21/24 Additional Instructions: FOLLOW-UP WITH PRIMARY CARE PROVIDER IN 1 TO 2 DAYS. TAKE MEDICATIONS DIRECTED HERE IN THE EMERGENCY ROOM. OKAY TO CONTINUE HOME MEDICATIONS UNLESS OTHERWISE DISCUSSED DURING YOUR VISIT IN THE EMERGENCY ROOM TODAY. RETURN TO YOUR NEAREST EMERGENCY ROOM IF SYMPTOMS WORSEN OR IF THERE IS NO IMPROVEMENT. CALL 911 IF YOU NEED IMMEDIATE ASSISTANCE. TAKE TYLENOL [id number] NEEDED AND IF NO CONTRAINDICATIONS ARE PRESENT. INCREASE ORAL HYDRATION. A WOUND CULTURE OR URINE CULTURE WAS ORDERED HERE IN THE EMERGENCY ROOM DEPARTMENT PLEASE FOLLOW-UP WITH PRIMARY CARE PROVIDER AND ADVISE THEM TO GET REPEAT PORTS FROM OUR FACILITY. IF YOU HAD ANY NAT WRAP/SPLINTS THAT WERE APPLIED HERE, PLEASE DO NOT REMOVE THEM UNTIL YOU SEE YOUR PRIMARY CARE OR SPECIALTY. REFERRALS: Referrals: MIGEL CASTILLO MD (PCP) Time of Disposition: 15:24 I have reviewed, & agreed with my scribe's, documentation. (Entered by Avtar Munroe, acting as a scribe for Dr. Soto) I personally scribed for PRISCILLA SOTO MD (NINFA) on 10/21/24 at 10:47. Electronically submitted by Avtar Munroe ([facility]). I personally scribed for PRISCILLA SOTO MD (NINFA) on 10/21/24 at 10:58. Electronically submitted by Avtar Munroe ([facility]). I personally scribed for PRISCILLA SOTO MD (NINFA) on 10/21/24 at 15:14. Electronically submitted by Avtar Munroe ([facility]). PRISCILLA SOTO MD Oct 21, 2024 10:47
[2024-10-21 10:58] LABS: BASOPHILS # (AUTO) 0.05 K/uL (0.00-0.20); BASOPHILS % (AUTO) 0.6 % (0.0-5.0); EOSINOPHILS # (AUTO) 0.08 K/uL (0.00-0.70); HEMATOCRIT 37.2 % (36-48); IMMATURE GRANULOCYTE ABSOLUTE 0.07 K/uL (0-1); LYMPHOCYTES # (AUTO) 1.4 K/uL (1.0-4.8); LYMPHOCYTES % (AUTO) 17.7 % (21.0-51.0); MEAN CORPUSCULAR HEMOGLOBIN 30.6 pg (27.0-33.0); MEAN CORPUSCULAR HGB CONC 33.3 g/dL (32.0-36.0); MEAN CORPUSCULAR VOLUME 91.9 fL (79-99); MONOCYTES # (AUTO) 0.5 K/uL (0.1-1.0); MONOCYTES % (AUTO) 5.9 % (3.0-13.0); NEUTROPHILS # (AUTO) 5.8 K/uL (1.8-7.7); NEUTROPHILS % (AUTO) 73.9 % (40.0-77.0); PLATELET COUNT (AUTO) 292 K/uL (130-400); RED BLOOD CELL COUNT(AUTO) 4.05 MIL/uL (4.00-5.50); RED CELL DISTRIBUTION WIDTH 13.3 % (11.0-15.5); WHITE BLOOD COUNT (AUTO) 7.9 K/uL (4.8-10.8)
[2024-10-21] MEDS: PANTOPrazole 40 MG/VIAL IVP ONE (10:59)
[2024-10-21 11:06] LABS: POTASSIUM 4.5 mmol/L (3.5-5.1)
--- NOTE | 2024-10-21 11:06 | EKG ---
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
[2024-10-21 11:10] LABS: ALBUMIN 3.8 g/dL (3.5-5.0); BILIRUBIN,TOTAL 0.3 mg/dL (0.2-1.0); MAGNESIUM 1.9 mg/dL (1.80-2.40); TOTAL PROTEIN, SERUM 7.7 g/dL (6.0-8.3)
[2024-10-21 11:13] LABS: INR 0.99 (0.85-1.15); PROTHROMBIN TIME 10.7 SEC (9.6-11.6)
[2024-10-21 11:14] LABS: PARTIAL THROMBOPLASTIN TIME 25.7 SEC (26.3-35.5)
[2024-10-21 11:21] LABS: B-TYPE NATRIURETIC PEPTIDE 67 pg/mL (0-100)
[2024-10-21] MEDS: NITROGLYCERIN 0.4 MG SL TAB SL PRN (11:25)
[2024-10-21 13:06] LABS: ADD UA MICROSCOPIC NO; APPEARANCE,URINE CLEAR (CLEAR); BILIRUBIN,URINE NEGATIVE (NEGATIVE); COLOR,URINE LIGHT-YELLOW (YELLOW); GLUCOSE, URINE (UA) NEGATIVE (NEGATIVE); KETONES,URINE NEGATIVE (NEGATIVE); LEUKOCYTE ESTERASE ,URINE NEGATIVE Leu/uL (NEGATIVE); NITRATE,URINE NEGATIVE (NEGATIVE); OCCULT BLOOD,URINE NEGATIVE (NEGATIVE); PROTEIN,URINE NEGATIVE (NEGATIVE); UROBILINOGEN,URINE 0.2 mg/dL (0.2-1.0)
--- NOTE | 2024-10-21 13:15 | HMCIMG ---
CHEST 1VW HISTORY: Chest pain COMPARISON: 10/02/2024 FINDINGS: A frontal projection of the chest was obtained. No acute pulmonary infiltrates is seen. The heart is borderline enlarged. Degenerative changes are seen. Prominent interstitial markings are seen. IMPRESSION: 1. No acute pulmonary infiltrate is seen.
--- NOTE | 2024-10-21 13:25 | NUR ---
AMILODIPINE PATIENT TOOK 5 MG AMILODIPINE OF HER OWN MEDICATIONS.
[2024-10-21] MEDS ORDERED: IOHEXOL-350 75 ML VIAL IV ONE (13:39)
--- NOTE | 2024-10-21 14:35 | HMCIMG ---
CT ABDOMEN/PELVIS W/CONTRAST HISTORY: Epigastric pain COMPARISON: None TECHNIQUE: Multiple sequential axial images of the abdomen and pelvis were obtained from the dome of the diaphragm through symphysis pubis. Patient was given 75 cc of Omnipaque through intravenous route. Oral contrast was not given. FINDINGS: No pleural effusion is seen bilaterally. There is no evidence of parenchymal disease or pulmonary nodule of the visualized lower lungs. Degenerative changes of the thoracolumbar spine are present. The heart is not enlarged. Coronary arterial calcifications are seen. Minimal small bowel dilatation is seen may be related to enteritis. The liver, spleen, adrenal glands and pancreas are unremarkable. There is no evidence of hydronephrosis bilaterally. No evidence of renal stone is seen. Fecal material is seen in the colon. There are normal size retroperitoneal and mesenteric lymph nodes. No ascites is seen. Atherosclerotic changes are present. Pelvic sidewalls are symmetric bilaterally. Bladder is well distended without wall thickening. IMPRESSION: 1. Minimal small bowel dilatation may be related to enteritis. Fecal material is seen in the colon. CT was performed with one or more following dose reduction techniques: automated exposure control, adjustment of the mA and kv according to patient's size, or use of a iterative reconstruction technique.
[2024-10-21] MEDS: hydrALAZine 20MG/ML VIAL IV ONE (15:03)
[2024-10-21 15:12] VITALS: BP 191/83; PULSE 89; RESP 15; TEMP 98.1; O2SAT 99
[2024-10-21] MEDS ORDERED: PANT40TA55 PO (15:25)
--- NOTE | 2024-10-21 16:46 | NUR ---
PT STABLE NO DISTRESS PT WILL CONTINUE TO MONITOR BLOOD PRESSURE AT HOME, ADVISED TO SEE PCP, PT VISHAL STATED SHE HAS AN APPPOINTMENT TOMORROW, PT GIVEN ONE RX HAND WILL START NEW MEDICATION IN MORNING. PT IV D/C CATHETER INTACT , PT DRIVEN BY DAUGHTER.
== END 2024-10-21 16:53 | disposition home or self-care (01) ==
LOC: EDH 10:31
DX: A08.4 Viral intestinal infection, unspecified (principal); I10 Essential (primary) hypertension; E11.9 Type 2 diabetes mellitus without complications; E03.9 Hypothyroidism, unspecified; E78.00 Pure hypercholesterolemia, unspecified; Z79.02 Long term (current) use of antithrombotics/antiplatelets; Z79.82 Long term (current) use of aspirin; Z79.84 Long term (current) use of oral hypoglycemic drugs; Z88.6 Allergy status to analgesic agent; Z90.710 Acquired absence of both cervix and uterus; Z91.148 Patient's other noncompliance with medication regimen for other reason
CPT/HCPCS: 99285; 74177; 96374; 71045; 96375; 82550; 83735; 84484; 80053; 83880; 83690; 85025; 85610; 85730; 81003; 36415; 93005; J0360; J2470; Q9967

== ENCOUNTER → 2024-11-11 | Outpatient (CLI) | payer MEDICARE ==
[~2024-11-11] MED LIST changes: +PANT40TA55 PO
--- NOTE | 2024-11-11 09:04 | HMCIMG ---
RENAL ARTERY ULTRASOUND. INDICATION: COMPARISON: None available. FINDINGS: There is no significant aortic plaque, and the peak systolic velocity in the aorta is normal before and after the renal artery takeoff bilaterally. The highest peak systolic velocity of the renal arteries is normal bilaterally. Bilateral RAR's are within normal limits. IMPRESSION: No evidence of renal artery stenosis.
== END | disposition home or self-care (01) ==
LOC: RAH 07:27
PROVIDERS: ATTEND Internal Medicine
DX: I10 Essential (primary) hypertension (principal)
CPT/HCPCS: 76770; 93975

== ENCOUNTER → 2025-08-07 | Outpatient (CLI) | payer MEDICARE, MEDICAID ==
[~2025-08-07] MED LIST changes: -LEVO75CA5 PO; +LEVO75CA6 PO; +LISI40TA15 PO; -LISI40TA9 PO
--- NOTE | 2025-08-07 16:10 | HMCIMG ---
Right chest wall ULTRASOUND INDICATION: History of malignant neoplasm of the breast. COMPARISON: None TECHNIQUE: Multiplanar sonographic images of the right chest wall were obtained earlier in real-time using grayscale and color Doppler technique, and subsequently made available for review. The study demonstrate patient is status post right mastectomy 1997. There is no mass seen. There is no fluid seen. There is a benign-appearing right axillary lymph node measuring 1.0 x 0.5 x 0.9 cm. FINDINGS/IMPRESSION: Ultrasound the chest demonstrate no lesion identified. Status post mastectomy
--- NOTE | 2025-08-10 11:41 | HMCIMG ---
DIGITAL left breast DIAGNOSTIC MAMMOGRAM and axillary view of the right breast. Technique: The digital mammographic examination of left breast in craniocaudal, mediolateral oblique views along with CAD was obtained. History: This is a 79 years year-old female 5, para5 Ab0 . Patient has no family history of breast cancer. Patient has no complaint Reference:Prior mammogram from 07/17/2024 and 07/17/2022 are available.. Breast composition: Breast composition B: There are scattered areas of fibroglandular density. Finding: The digital mammographic examination of left breast in craniocaudal and mediolateral oblique view along with CAD demonstrates left breast to BE mildly dense with mostly involutional fatty changes. There is multiple linear ductal calcifications in the both in the left breast inferiorly mostly. There is a solitary macrocalcification seen in the left breast upper outer quadrant. There are vascular calcification suggesting of atherosclerotic changes.. There is no evidence of any dendritic mass, cluster microcalcification or architectural distortion. The retromammary fat appears to be normal. Axillary region the right breast demonstrate no lesion seen. IMPRESSION: Unchanged from prior mammogram. NO RADIOGRAPHIC EVIDENCE OF MALIGNANT CHANGES. WE WOULD RECOMMEND ANNUAL FOLLOW UP WITH TOMOSYNTHESIS UNLESS OTHERWISE CLINICALLY INDICATED. FINAL ASSESSMENT: ACR: BI-RAD- 2. Benign: Also a negative assessment; finding(s) benign abnormalities. Management: Routine mammography screening. Likelihood of Cancer: Essentially 0% likelihood of malignancy. NOTE: IF A WORK-UP OF THIS PATIENT LEADS TO A BIOPSY, PLEASE FORWARD A COPY OF THE PATHOLOGY REPORT TO OUR OFFICE REQUIRED BY [employer] AUGUST 19, 1994. A NEGATIVE MAMMOGRAM SHOULD NOT PRECLUDE BIOPSY OF A CLINICALLY PALPABLE SUSPICIOUS MASS, 10% OF BREAST CANCERS ARE MAMMOGRAPHICALLY OCCULT. THIS MAMMOGRAPHY FACILITY IS FULLY ACCREDITED BY THE FOOD AND DRUG ADMINISTRATION (FDA). THANK YOU FOR THIS REFERRAL.
== END | disposition home or self-care (01) ==
LOC: RAH 08:59
PROVIDERS: ATTEND Internal Medicine
DX: R92.323 Mammographic fibroglandular density, bilateral breasts (principal); R92.1 Mammographic calcification found on diagnostic imaging of breast; R92.0 Mammographic microcalcification found on diagnostic imaging of breast; Z90.11 Acquired absence of right breast and nipple; Z85.3 Personal history of malignant neoplasm of breast
CPT/HCPCS: 76604; 77065